=== PATIENT | female | born 1940 | race Caucasian/White ===

== ENCOUNTER 2016-04-24 07:08 | Observation (INO) ==
--- NOTE | 2016-04-24 07:37 | Emergency Department Note ---
Disposition Clinical Impression: Proctitis Abdominal pain Qualifiers: Abdominal location: unspecified location Qualified Code(s): R10.9 - Unspecified abdominal pain Constipation Qualifiers: Constipation type: unspecified constipation type Qualified Code(s): K59.00 - Constipation, unspecified Disposition: Admitted As Inpatient Condition: Good Time of Disposition: 10:58 Abdominal Pain HPI - General Chief Complaint: ED Abdominal Pain Stated Complaint: constipated, can't pee Time Seen by Provider: 04/24/16 07:13 Source: patient, family Mode of arrival: ambulatory Limitations: no limitations Nursing Notes Reviewed: Yes Vital Signs Reviewed: Yes - History of Present Illness HPI Narrative: Patient presents to emergency room with complaint of constipation and she has pain with voiding. She says that she has severe pain when she tries to have a bowel movement. Patient does have a history for melanoma with metastatic disease. She has taken several tablets worth of oral chemotherapy prior to this. Denies any other complaints this time. No fevers chills, nausea vomiting diarrhea, chest pain shortness of breath headache or vision change. Main complaint is pain with defecation and decreased urinary output. Pt Subjective Complaint: abdominal pain Onset (ago): day(s) Consistency: constant Location: LLQ Pain Severity: mild Pain Scale: 0 Quality: cramping, sharp (When she tries to have a bowel movement) Radiation: none Migration to: no migration Improves with: nothing Worsens with: bowel movement Associated symptoms: Reports: denies other symptoms Treatments prior to arrival: none - Related Data Home Medications Medication Instructions Recorded Confirmed Potassium Chloride [K-Tab ER] 10 meq PO DAILY 07/05/15 04/24/16 Triamterene/HCTZ 75/50mg [Maxzide] 1 tab PO DAILY 07/05/15 04/24/16 Ca/D3/Mag#11/Zinc/Acute Care Nurse/Tucker/Bor 1 tab PO DAILY 08/16/15 04/24/16 [Caltrate 600+D Plus Tablet] PredniSONE 10 mg PO DAILY 08/25/15 04/24/16 Previous Rx's Medication Instructions Recorded LORazepam [Ativan] 0.5 - 1 mg PO Q6HR PRN #90 tablet 06/23/15 Ondansetron HCl [Zofran] 4 mg PO Q4H PRN #30 tablet 08/04/15 Omeprazole [PriLOSEC] 20 mg PO DAILY #90 capsule. 04/12/16 Allergies Allergy/AdvReac Type Severity Reaction Status Date / Time No Known Allergies Allergy Verified 04/15/16 20:55 All systems ED: reviewed and negative except as stated. Constitutional: Denies: fever, chills Abdominal Pain PMH - Past Medical History Medical history: Reports: cancer, GERD, hypertension Female Surgical History: Reports: appendectomy, cholecystectomy, colectomy, hysterectomy Psychiatric history: Reports: anxiety - Social History Smoking status: Former smoker Alcohol use: Reports: none Drug use: Reports: none Physical Exam - General Limitations: no limitations General appearance: alert, in no apparent distress - Chest Chest inspection: Present: normal inspection, symmetric chest wall rise. Absent : tenderness - Respiratory Respiratory exam: Present: normal lung sounds bilaterally. Absent: respiratory distress, wheezes - Cardiovascular Cardiovascular exam: Present: normal rhythm, tachycardia, normal heart sounds - Abdominal Exam Abdominal exam: Present: soft, tenderness (Mild tenderness in the left lower quadrant suprapubically. No guarding no rigidity no peritoneal symptoms). Absent: Non-Tender, distention, guarding, rebound, rigidity, mass, pulsatile mass, hernia - Extremities Exam Extremities exam: Present: normal inspection, full ROM. Absent: tenderness - Back Exam Back exam: Present: normal inspection, full ROM. Absent: tenderness, CVA tenderness (R), CVA tenderness (L) - Neurological Exam Neurological exam: Present: alert, oriented X3, CN II-XII intact, normal gait - Psychiatric Psychiatric exam: Present: normal affect, normal mood - Skin Skin exam: Present: warm, dry, intact, normal color Course Course Narrative: Patient seen and examined the time of arrival. See history of present illness. This is a 75-year-old female who presents to emergency room with complaint of constipation and difficulty with voiding. Symptom onset was several days ago. She has a history of constipation but she has never had issues like this before. She says that every time she was at a bowel movement she has severe pain in her lower rectal area and she also describes some difficulty with feeling like she voids completely. Currently patient denies any other symptoms or complaints. She has no fevers chills nausea vomiting diarrhea denies chest pain shortness of breath headache or vision changes. According to the patient as well as the family member she is currently being evaluated for metastatic melanoma. She is only done a short course of oral chemotherapy and is under the care of the cancer center at this facility. Vital signs on presentation are stable she is afebrile. She is alert and oriented 3. Lungs are clear heart is regular abdomen is soft there is no guarding no rigidity she does have tenderness in the left lower quadrant radiating to the midline aspect of the abdomen. There is no palpable masses or deformity. She has no tenderness to the bilateral hips. Patient has full range of motion in upper and lower extremities and is ambulatory to the [facility]. Because of the patient's medical history and symptoms facial CT imaging of the abdomen labs include urinalysis ordered. Patient had evaluation one week ago for similar issue. Bedside rectal examination was completed by myself showing a firm stool mass in the vault that was loosened. She also be provided with fleets enema based on initial presentation. There is concern for intracolonic mass based on family history and discussion with the family member at the bedside. She is known to have masses in or: Lungs and liver based on the story from the family member at the bedside. We will continue to evaluate and discuss disposition. Currently patient is a full code based on recommendations and requests. - Reevaluation(s) Reevaluation #1: Labs are all within normal limits. Creatinine is better than what it normally is. Urinalysis is clean with no signs of infection. CT scan is still pending. No other acute pathology noted at this time. Fleets enema given. We will discuss disposition with the patient once the CT imaging is resulted Time: 09:05 Reevaluation #2: Patient I will patient informed that she has proctitis based on CT scan. She also has stool burden in the distal colon. Conversation was had with the on- call oncologist covering for . reviewed her medical history and symptoms. She was seen up at [facility] this time for her cancer treatments. I went in to discuss possible transfer further medical management with the patient and the family. They are requesting to stay here this is not a cancer related issue. I informed him that we do not have the ability to tell whether not this is cancer related except that she has inflammation of the distal colon as well as a large stool burden. There requesting to stay at this facility for evaluation and management. We will discuss this with the hospitalist education and outreach coordinator and determine disposition at that time. Pain medication ordered for the patient 's time as well as Cipro and Flagyl Discussed the patient with the hospitalist Dr. Montes. Will review the patient's presentation symptoms medical history and the wishes of the patient and the family. He is going to come down and evaluate the patient in the emergency room and discussed disposition. He was concerned based on her history and presentation with having appropriate medical management. We will continue to monitor and provide pain control here in the ED until this evaluation is completed. Time: 09:50 Reevaluation #3: hospitalist Dr. Montes at the bedside at this time. Patient will be admitted to their service at this time. No other recommendations from the hospitalist this point. Patient is stable and resting comfortably in the bed. Pain medication provided this point. Vital signs are stable she is afebrile and mentating appropriately. Incision the course of care will be done in the hospital. Patient will be observed here in the emergency room until the admission process is completed Time: 10:35 Vital Signs Temperature 97.9 F 04/24/16 07:09 Pulse Rate 116 04/24/16 07:09 Respiratory Rate 20 04/24/16 07:09 Blood Pressure 129/78 04/24/16 07:09 O2 Sat by Pulse Oximetry 96 04/24/16 07:09 Temperature 97.9 F 04/24/16 07:09 Pulse Rate 104 04/24/16 09:56 Respiratory Rate 18 04/24/16 09:56 Blood Pressure 140/78 04/24/16 09:56 O2 Sat by Pulse Oximetry 95 04/24/16 08:26 Oxygen Delivery Oxygen Delivery Room Air Abdominal Pain - MDM Narrative Medical decision making narrative: Constipation, abdominal pain cancer - Medical Records Medical records reviewed: Yes I reviewed the patient's medical records. - Lab Data Lab results reviewed: Yes I reviewed the patient's lab results. Result diagrams: 04/24/16 07:51 04/24/16 07:51 Lab Results 04/24/16 04/24/16 04/24/16 Range/Units 07:51 07:51 08:53 WBC 8.9 (4.3-11.1) K/mcL RBC 5.03 H (3.82-4.97) M/mcL Hgb 12.3 D (11.5-15.4) g/dL Hct 38.7 (35.3-44.9) % MCV 76.9 L (83.0-100.0) fL MCH 24.5 L (28.0-33.3) pg MCHC 31.8 (31.6-35.5) g/dL RDW 16.2 H (11.5-14.5) % Plt Count 286 (140-400) K/mcL MPV 8.1 L (9.4-12.4) fL Immature Gran % 0.8 (0-4) % Seg Neutrophils % 71.8 % Lymphocytes % 18.2 % Monocytes % 8.4 % Eosinophils % 0.3 % Basophils % 0.5 % Neutrophils # 6.4 (1.6-8.9) K/mcL Lymphocytes # 1.6 (0.6-4.6) K/mcL Monocytes # 0.8 (0.0-1.3) K/mcL Eosinophils # 0.0 (0.0-0.6) K/mcL Basophils # 0.0 (0.0-0.2) K/mcL Sodium 138 (136-145) mEq/L Potassium 3.3 L (3.5-4.5) mEq/L Chloride 100 (98-109) mEq/L Carbon Dioxide 24 (19-29) mEq/L BUN 22 H (7-20) mg/dL Creatinine 1.26 H (0.57-1.11) mg/dL Est GFR ( Amer) 50 L (> 60) Est GFR (Non-Af Amer) 42 L (> 60) BUN/Creatinine Ratio 17 (6-26) Glucose 106 H (70-99) mg/dL Calculated Osmolality 290 (280-300) Calcium 9.8 (8.6-10.8) mg/dL Total Bilirubin 0.8 (0.2-1.2) mg/dL Direct Bilirubin 0.3 (0.0-0.5) mg/dL Indirect Bilirubin 0.5 (0.0-1.2) mg/dL AST 13 (5-34) Units/L ALT 14 (0-55) Units/L Alkaline Phosphatase 63 (38-126) Units/L Serum Total Protein 6.8 (6.0-8.3) g/dL Albumin 3.0 L (3.5-5.0) g/dL Globulin 3.8 H (2.4-3.5) g/dL Albumin/Globulin Ratio 0.8 L (1.1-2.2) Lipase 159 H (8-78) Units/L Ur Specimen Adequacy See below A Urine Color Yellow (Yellow) Urine Clarity Cloudy A (Clear) Urine pH 6.5 (5.0-8.0) pH Units Ur Specific [place] 1.020 (1.010-1.025) Urine Protein 30 H (Neg-Trace) mg/dL Urine Glucose (UA) Normal (Normal) mg/dL Urine Ketones Negative (Negative) mg/dL Urine Blood Large H (Negative) Urine Nitrite Negative (Negative) Urine Bilirubin Negative (Negative) Urine Urobilinogen Normal (Normal) mg/dL Ur Leukocyte Esterase Large H (Negative) Urine Microscopic RBC 30-50 H (0-3) per hpf Urine Microscopic WBC 50-100 H (0-3) per hpf Ur Squamous Epith Cells Many H (None-Few) per lpf Ur Transition Epith Cell Few (None-Few) per hpf Urine Bacteria Many H (None-Few) per hpf Hyaline Casts Few (None-Few) per lpf Urine Yeast Test Not Performed Ur Culture Indicated? YES A (NO) - Radiology Data Radiology results reviewed: Yes I reviewed the patient's radiology results. Critical Care Time Critical Care Time: Yes Total Critical Care Time: 45 Attestation: Critical care is independent of procedures and medical management. The emergency room. Attestation Statement - Attestation Attestation: I examined this patient and my medical decision-making was reviewed with the SPIKE DRIVER/PA/Advanced Practice Nurse/Resident Physician. I agree with the documented findings, disposition and treatment plan as described except to the extent set forth below. Patient presents to the emergency department with a chief complaint of constipation. Patient states she has not had a bowel movement in 3-4 days. She has a history of bowel problems but has never been this bad. Patient currently being treated for metastatic melanoma. No recent chemoradiation. She has known metastases to her colon and history of diverticulitis. On exam she has tenderness over her left lower quadrant. Abdomen soft. Plan. Labs and CT. Patient with proctitis. Unclear if this is infectious versus inflammatory versus cancerous. She had a small resolved with enema. She is admitted to medicine.
[2016-04-24] MEDS ORDERED: SODIUM CHLORIDE/NAHCO3/KCL/PEG 4,000 ML SOLN.RECON PO ONE (07:43)
[2016-04-24 08:10] LABS: Basophils % 0.5 %; Eosinophils % 0.3 %; Hematocrit 38.7 % (35.3-44.9); Hemoglobin 12.3 g/dL (11.5-15.4); Immature Granulocytes % 0.8 % (0-4); Lymphocytes # 1.6 K/mcL (0.6-4.6); Lymphocytes % 18.2 %; Mean Corpuscular HGB Conc 31.8 g/dL (31.6-35.5); Mean Corpuscular Hemoglobin 24.5 pg (28.0-33.3); Mean Corpuscular Volume 76.9 fL (83.0-100.0); Mean Platelet Volume 8.1 fL (9.4-12.4); Monocytes # 0.8 K/mcL (0.0-1.3); Monocytes % 8.4 %; Neutrophils # 6.4 K/mcL (1.6-8.9); Platelet Count 286 K/mcL (140-400); Red Blood Count 5.03 M/mcL (3.82-4.97); Red Cell Distribution Width 16.2 % (11.5-14.5); Segmented Neutrophils % 71.8 %
[2016-04-24 08:12] LABS: Potassium 3.3 mEq/L (3.5-4.5)
[2016-04-24 08:13] LABS: Albumin/Globulin Ratio 0.8 (1.1-2.2); Bilirubin,Direct 0.3 mg/dL (0.0-0.5); Bilirubin,Indirect 0.5 mg/dL (0.0-1.2); Bilirubin,Total 0.8 mg/dL (0.2-1.2); Calcium 9.8 mg/dL (8.6-10.8); Globulin 3.8 g/dL (2.4-3.5); Total Protein 6.8 g/dL (6.0-8.3)
[2016-04-24 09:07] LABS: Bilirubin,Urine Negative (Negative); Blood,Urine Large (Negative); Clarity,Urine Cloudy (Clear); Color,Urine Yellow (Yellow); Glucose,Urine (UA) Normal (Normal); Ketones,Urine Negative (Negative); Leukocyte Esterase,Urine Large (Negative); Nitrite,Urine Negative (Negative); PH,Urine 6.5 pH Units (5.0-8.0); Protein,Urine 30 mg/dL (Neg-Trace); Urobilinogen,Urine Normal (Normal)
[2016-04-24 09:16] LABS: Bacteria,Urine Many per hpf (None-Few); Hyaline Casts,Urine Few per lpf (None-Few); Squamous Epithelial Cell,Urine Many per lpf (None-Few); WBC,Urine 50-100 per hpf (0-3)
[2016-04-24 09:26] LABS: RBC,Urine 30-50 per hpf (0-3); Transitional Epi Cells,Urine Few per hpf (None-Few)
[2016-04-24] MEDS ORDERED: MetroNIDAZOLE 500 MG/100 ML 500 MG/100 ML BAG IVPB ONE (09:35)
[2016-04-24] MEDS ORDERED: Ondansetron 4 MG/2 ML VIAL IV ONE (09:56)
[2016-04-24] MEDS ORDERED: *HR* Morphine 2 MG/ML SYRINGE IV ONE (09:56)
[2016-04-24] MEDS ORDERED: *HR* LORazepam 0.5 MG TABLET PO PRN (12:02)
[2016-04-24] MEDS ORDERED: Acetaminophen 325 MG TABLET PO PRN (12:07)
[2016-04-24] MEDS ORDERED: Ondansetron 4 MG/2 ML VIAL IVP PRN (12:07)
[2016-04-24] MEDS ORDERED: Naloxone 0.4 MG/ML INJ IVP PRN (12:07)
[2016-04-24] MEDS ORDERED: *HR* OxyCODONE Immed Rel 5 MG TABLET PO PRN (12:07)
[2016-04-24] MEDS ORDERED: *HR* FentaNYL (PF) 100 MCG/2 ML VIAL IV ONE (12:08)
[2016-04-24] MEDS ORDERED: 0.9 % Sodium Chloride 1,000 ML IVC SCH (12:15)
[2016-04-24] MEDS ORDERED: Bisacodyl 10 MG RECTAL SUPPOSITORY RC SCH (12:15)
--- NOTE | 2016-04-24 12:15 | Internal Med History&Physical ---
Date of Encounter: 04/24/16 Time of Encounter: 11:00 Assessment and Plan (1) Proctitis Current visit: Yes Status: Acute Likely secondary to chronic constipation and fecal impaction. We will continue with broad-spectrum antibiotics to cover gram-negative rods and anaerobes. (2) Cystitis Current visit: Yes Status: Acute Urinalysis is positive for leukocyte esterase and WBC. We will treat the patient with Levaquin. Follow-up urine culture. (3) Constipation Current visit: Yes Status: Acute Severe constipation likely secondary to delayed colonic transit. I have personally reviewed the CT scan and did not see any masses compressing the sigmoid or direct him although given her history of metastatic melanoma with colonic metastases there is always a possibility from metastatic disease. We will treat the patient with Fleet enema, Dulcolax suppository, MiraLAX. Consult surgery for possible need for colonoscopy to evaluate for metastatic disease. Qualifiers: Constipation type: slow transit constipation Qualified Code(s): K59.01 - Slow transit constipation (4) DVT prophylaxis Current visit: No Status: Acute We will start subcutaneous heparin. She is at high risk for PTE due to active cancer. (5) Hypokalemia Current visit: No Status: Acute Replete with oral potassium chloride. Check magnesium level. (6) Metastatic melanoma Current visit: No Status: Chronic We will consult oncology. Noted again it is a lung mass, she had a biopsy scheduled for today. This will be canceled. Internal Medicine - H&P: HPI Chief complaint: Rectal pain Admitted From: Emergency Dept Plans for Post Hospital Care: Home History of present illness: Ms. Severino is a 75 year old female with past medical history significant for hypertension and metastatic melanoma who presented to the hospital due to constipation and rectal pain. The patient reports moderate to severe rectal pain worse with straining and trying to pass a bowel movement and abdominal ambulation, improved by rest, associated with constipation. She states that she has not had a bowel movement for the last 4 days. Denies associated nausea vomiting fevers chills or abdominal pain. Denies dysuria hematuria urinary frequency and urgency. Reports easy bleeding and bruising, denies chest pain palpitations shortness of breath patient lost hearing loss weakness and numbness. The remainder of a 10 point review of systems was negative. Past medical history pertinent for pancreatic cancer and coronary artery disease in parents. Past Med Surg Social Fam HX - Past Medical History Medical history: cancer, GERD, hypertension Psychiatric history: anxiety - Past Surgical History Surgical History: appendectomy, cancer surgery, cholecystectomy, hysterectomy, other - Social History Smoking Status: Former smoker Smokeless Tobacco Status: No Alcohol use: none Drug use: none - Family History Mother Living Status: Hx Family Cancer: Yes (pancreatic/lung ca) Father Living Status: Internal Medicine - H&P: Meds LORazepam [Ativan] 0.5 - 1 mg PO Q6HR PRN #90 tablet 06/23/15 [Rx] Potassium Chloride [K-Tab ER] 10 meq PO DAILY 07/05/15 [History] Triamterene/HCTZ 75/50mg [Maxzide] 1 tab PO DAILY 07/05/15 [History] Ondansetron HCl [Zofran] 4 mg PO Q4H PRN #30 tablet 08/04/15 [Rx] Ca/D3/Mag#11/Zinc/Supervisor Files/Tucker/Bor [Caltrate 600+D Plus Tablet] 1 tab PO DAILY 08/15 [History] PredniSONE 10 mg PO DAILY 08/25/15 [History] Omeprazole [PriLOSEC] 20 mg PO DAILY #90 capsule. 04/12/16 [Rx] Allergies No Known Allergies Allergy (Verified 04/15/16 20:55) All Systems PM: A 10-system review of systems was performed and is negative for pertinent findings except as documented above in the HPI. - Constitutional Vitals: Temp Pulse Resp BP Pulse Ox 97.9 F 94 17 128/81 95 04/24/16 07:09 04/24/16 11:31 04/24/16 11:31 04/24/16 11:31 04/24/16 11:31 General appearance: Present: A&O X 3, no acute distress - Eye Eye exam: Present: PERRL, conjuntiva pink, sclera anicteric Pupils: Present: PERRL - Respiratory Respiratory exam: Present: CTAB. Absent: accessory muscle use, rales, rhonchi, wheezes - Cardiovascular Cardiovascular exam: Present: RRR, +S1, +S2. Absent: diastolic murmur, gallop, rubs, systolic murmur - GI/Abdominal GI/Abdominal exam: Present: normal bowel sounds, soft, no peritoneal signs. Absent: distended, tenderness - Extremities Exam Extremities exam: Present: warm, radial pulses palpable and symetrical. Absent : calf tenderness, cyanotic, pedal edema - Neurological Exam Neurological exam: Present: CN II-XII intact, oriented X3, no focal deficits. Absent: pronater drift, facial droop, speech deficit - Skin Skin exam: Present: dry, intact Internal Med - H&P Results - Labs CBC & Chem 7: 04/24/16 07:51 04/24/16 07:51
[2016-04-24] MEDS ORDERED: Polyethylene Glycol 3350 255 GM POWDER PO ONE (13:52)
[2016-04-24] MEDS: Sennosides/Docusate Sodium TABLET PO SCH (13:53)
--- NOTE | 2016-04-24 13:55 | General Surgery Consult Note ---
Date of Encounter: 04/24/16 Time of Encounter: 14:19 Assessment and Plan (1) Constipation Current Visit: Yes Status: Acute I personally reviewed the CT scan images from 04/24/2016 showing copious amounts of stool throughout the entire colon and concern for proctitis. I agree with with giving enemas and Miralax to help assist with bowel movements, however I will change the Miralax order so that she is given essentially half of a bowel prep to help assist with bowel movements. Once her bowel movements have improved and will talk with her about possibly performing an endoscopy procedure during her current inpatient stay. Discussed with the patient and her daughter and agreed to the above plan. Additionally, I changed her diet from a cardiac diet to full liquids. Qualifiers: Constipation type: slow transit constipation Qualified Code(s): K59.01 - Slow transit constipation History of Present Illness Consult date: 04/24/16 Reason for consult: other (Constipation) Requesting physician: Mayco Montes History of present illness: Patient is a 75-year-old female with a past medical history significant for hypertension, GERD, tuberculosis, and malignant melanoma with metastasis presents to [facility] with a history of constipation. She states that she has been dealing with problems of constipation for a while (1-2 years) but recently had problems with the last week or 2. He presented herself to [place] on 04/15/2016 with symptoms of constipation and had 2 bowel movements that were mainly blood. She states that she was treated in sent home but no endoscopy procedures were performed at that time. She states that she has not had a bowel movement for 4 days until this morning (bowel movement was small and only with an enema). She states that the bowel movement was hard but denies any abdominal pain.. She last had a colonoscopy in March 2015 and a flex sigmoidoscopy in June 2015. The colonoscopy demonstrated polypoid masses in the rectosigmoid/sigmoid region which were consistent with malignant melanoma. The patient also has hilar lymphadenopathy is also consistent with metastasis. Past Med Surg Social Fam HX - Past Medical History Medical history: cancer, GERD, hyperlipidemia Psychiatric history: anxiety - Past Surgical History Surgical History: appendectomy, cancer surgery, cholecystectomy, hysterectomy, other (Colonoscopy, flex sigmoidoscopy) - Social History Smoking Status: Former smoker Smokeless Tobacco Status: No Alcohol use: none Drug use: none - Family History Mother Living Status: Cause of : pancreatic cancer Hx Family Cardiac Disorders: No Hx Family Respiratory Disorders: No Hx Family Cancer: Yes (pancreatic) Hx Family GI Disorders: No Hx Family Genitourinary Disorders: No Hx Family Endocrine Disorder: No Hx Family Musculoskeletal Disorders: No Hx Family Neuromuscular Disorders: No Hx Family Neurologic Disorders: No Hx Family HEENT Disorders: No Hx Family Autoimmune Disorders: No Hx Family Reproductive Disorders: No Hx Family Psychosocial Disorders: No Hx Family Medical Disorders: No Father Living Status: Age at : 59 Cause of : blood clot in heart Hx Family Cardiac Disorders: No Hx Family Respiratory Disorders: No Hx Family Cancer: No Hx Family GI Disorders: No Hx Family Genitourinary Disorders: No Hx Family Endocrine Disorder: No Hx Family Musculoskeletal Disorders: No Hx Family Neuromuscular Disorders: No Hx Family Neurologic Disorders: No Hx Family HEENT Disorders: No Hx Family Autoimmune Disorders: No Hx Family Reproductive Disorders: No Hx Family Psychosocial Disorders: No Hx Family Medical Disorders: Yes (Blood clot in heart) Medications and Allergies LORazepam [Ativan] 0.5 - 1 mg PO Q6HR PRN #90 tablet 06/23/15 [Rx] Potassium Chloride [K-Tab ER] 10 meq PO DAILY 07/05/15 [History] Triamterene/HCTZ 75/50mg [Maxzide] 1 tab PO DAILY 07/05/15 [History] Ondansetron HCl [Zofran] 4 mg PO Q4H PRN #30 tablet 08/04/15 [Rx] Ca/D3/Mag#11/Zinc/Car Deliverer/Tucker/Bor [Caltrate 600+D Plus Tablet] 1 tab PO DAILY 08/15 [History] PredniSONE 10 mg PO DAILY 08/25/15 [History] Omeprazole [PriLOSEC] 20 mg PO DAILY #90 capsule. 04/12/16 [Rx] Allergies No Known Allergies Allergy (Verified 04/15/16 20:55) Review of Systems All systems PM: reviewed and no additional remarkable complaints except as stated All systems PM: A 10-system review of systems was performed and is negative for pertinent findings except as documented above in the HPI. General Surgery Exam Initial Vital Signs Temp Pulse Resp BP Pulse Ox 97.9 F 116 20 129/78 96 04/24/16 07:09 04/24/16 07:09 04/24/16 07:09 04/24/16 07:09 04/24/16 07:09 - General physical appearance well developed, well nourished, no distress - Eyes PERRL, normal ocular movement - Neck no masses, trachea midline, no lymphadectomy - Respiratory normal expansion, normal respiratory effort - Cardiovascular Cardiovascular exam: Present: RRR, no murmurs/rubs/gallops - Abdomen Abdomen general surgery: Present: bowel sounds present, soft, non tender - Neurologic Present: CN 2-12 grossly intact - Musculoskeletal Present: other (No clubbing, cyanosis, or edema) - Psychiatric Psychiatric general surgery: Present: A&Ox3, appropriate, oriented to person, oriented to place, oriented to time Exam Initial Vital Signs Temp Pulse Resp BP Pulse Ox 97.9 F 116 20 129/78 96 04/24/16 07:09 04/24/16 07:09 04/24/16 07:09 04/24/16 07:09 04/24/16 07:09 Results - Labs 04/24/16 07:51 04/24/16 07:51 Abnormal lab results RBC 5.03 M/mcL (3.82-4.97) H 04/24/16 07:51 MCV 76.9 fL (83.0-100.0) L 04/24/16 07:51 MCH 24.5 pg (28.0-33.3) L 04/24/16 07:51 RDW 16.2 % (11.5-14.5) H 04/24/16 07:51 MPV 8.1 fL (9.4-12.4) L 04/24/16 07:51 Potassium 3.3 mEq/L (3.5-4.5) L 04/24/16 07:51 BUN 22 mg/dL (7-20) H 04/24/16 07:51 Creatinine 1.26 mg/dL (0.57-1.11) H 04/24/16 07:51 Est GFR ( Amer) 50 (> 60) L 04/24/16 07:51 Est GFR (Non-Af Amer) 42 (> 60) L 04/24/16 07:51 Glucose 106 mg/dL (70-99) H 04/24/16 07:51 Albumin 3.0 g/dL (3.5-5.0) L 04/24/16 07:51 Globulin 3.8 g/dL (2.4-3.5) H 04/24/16 07:51 Albumin/Globulin Ratio 0.8 (1.1-2.2) L 04/24/16 07:51 Lipase 159 Units/L (8-78) H 04/24/16 07:51 Ur Specimen Adequacy See below A 04/24/16 08:53 Urine Clarity Cloudy (Clear) A 04/24/16 08:53 Urine Protein 30 mg/dL (Neg-Trace) H 04/24/16 08:53 Urine Blood Large (Negative) H 04/24/16 08:53 Ur Leukocyte Esterase Large (Negative) H 04/24/16 08:53 Urine Microscopic RBC 30-50 per hpf (0-3) H 04/24/16 08:53 Urine Microscopic WBC 50-100 per hpf (0-3) H 04/24/16 08:53 Ur Squamous Epith Cells Many per lpf (None-Few) H 04/24/16 08:53 Urine Bacteria Many per hpf (None-Few) H 04/24/16 08:53 Ur Culture Indicated? YES (NO) A 04/24/16 08:53 All other labs normal. - Imaging Abdominal x-ray: report reviewed, image reviewed (Evidence of stool throughout the entire colon. Question of proctitis. No free air or free fluid. Diverticulosis is noted. Right lower lobe lung mass as well as low-attenuation within the liver.) Consult Discharge Plan - Plan Referrals: Kareem Corbin MD [Primary Care Provider] -
[2016-04-24] MEDS: MetroNIDAZOLE 500 MG/100 ML 500 MG/100 ML BAG IVPB SCH (16:02)
--- NOTE | 2016-04-24 16:21 | Oncology Inp Consult Note ---
Date of Encounter: 04/24/16 Time of Encounter: 15:30 Assessment and Plan (1) Metastatic melanoma Status: Chronic Assessment and plan: Has progressed on Nivolumab and temozolamide, states she is not eligible for clinical trials due to single kidney. She will follow up with Dr Londono to discuss further plan of care. (2) Constipation Status: Acute Assessment and plan: With associated procititis. Agree with surgery evaluation and the need for endoscopy. The patient has intestinal involvement of the melanoma and a history of colitis with immunotherapy. Qualifiers: Constipation type: slow transit constipation Qualified Code(s): K59.01 - Slow transit constipation (3) Mass of right lung Status: Acute Assessment and plan: The patient was to have biopsy to rule out a second primary due to a history of renal cell carcinoma, it is currently on hold till the proctitis is treated. - Data of Consult Requesting Physician: Oralia Oglesby Primary Care Provider: Kareem Corbin MD - Consult Narrative Reason for consult: Malignant melanoma History of present illness: Ms. Severino is a 75 year old female with a history of metastatic melanoma for which she is being followed at [facility] by Dr. Londono. She was diagnosed with metastatic malignant melanoma in 2014 when she presented with hematochezia and a 20 pound weight loss. Colonoscopy showed multiple lesions in the bowel which were biopsied and were positive for S100, confirming the diagnosis of melanoma. Metastatic sites included right axillary lymphadenopathy , liver, right lung, a left temporal lobe mass as well as right parieto- occipital mass in the brain. She received Yervoy and Nivolumab for 3 cycles from April to June 2015, followed by Nivolumab for 4 cycles which was subsequently stopped due to progression of disease in the chest. She then received temozolomide from January to February 2016 and stopped it because of progression of disease. She has a single kidney due to a reported history of right nephrectomy for renal cell cancer in 1995. She was seen in our clinic on 04/19/16 and at that time reported hematochezia, malaise and dysphoria. The patient reports that she was recently seen at [facility] and was not eligible for any clinical trials. She has an appointment coming up this Sunday with Dr. Londono and she wants to discuss with him about her other treatment options. The patient is admitted today with a complaint of constipation. She was found to have fecal impaction and received enemas which provided partial relief of the constipation. CT A/P was concerning for proctitis. She is currently being prepped for a possible colonoscopy during this inpatient hospital stay. She denied any blood in her stool. Continues to feel fatigued. ECOG PS is 3. She was to have a biopsy of the lung lesion which was cancelled due to ongoing infection. Past Med Surg Social Fam HX - Past Medical History Medical history: cancer, GERD, hyperlipidemia Psychiatric history: anxiety - Past Surgical History Surgical History: appendectomy, cancer surgery, cholecystectomy, hysterectomy, other (Colonoscopy, flex sigmoidoscopy) - Social History Smoking Status: Former smoker Smokeless Tobacco Status: No Alcohol use: none Drug use: none - Family History Mother Living Status: Cause of : pancreatic cancer Hx Family Cardiac Disorders: No Hx Family Respiratory Disorders: No Hx Family Cancer: Yes (pancreatic) Hx Family GI Disorders: No Hx Family Genitourinary Disorders: No Hx Family Endocrine Disorder: No Hx Family Musculoskeletal Disorders: No Hx Family Neuromuscular Disorders: No Hx Family Neurologic Disorders: No Hx Family HEENT Disorders: No Hx Family Autoimmune Disorders: No Hx Family Reproductive Disorders: No Hx Family Psychosocial Disorders: No Hx Family Medical Disorders: No Father Living Status: Age at : 59 Cause of : blood clot in heart Hx Family Cardiac Disorders: No Hx Family Respiratory Disorders: No Hx Family Cancer: No Hx Family GI Disorders: No Hx Family Genitourinary Disorders: No Hx Family Endocrine Disorder: No Hx Family Musculoskeletal Disorders: No Hx Family Neuromuscular Disorders: No Hx Family Neurologic Disorders: No Hx Family HEENT Disorders: No Hx Family Autoimmune Disorders: No Hx Family Reproductive Disorders: No Hx Family Psychosocial Disorders: No Hx Family Medical Disorders: Yes (Blood clot in heart) Medications and Allergies LORazepam [Ativan] 0.5 - 1 mg PO Q6HR PRN #90 tablet 06/23/15 [Rx] Potassium Chloride [K-Tab ER] 10 meq PO DAILY 07/05/15 [History] Triamterene/HCTZ 75/50mg [Maxzide] 1 tab PO DAILY 07/05/15 [History] Ondansetron HCl [Zofran] 4 mg PO Q4H PRN #30 tablet 08/04/15 [Rx] Ca/D3/Mag#11/Zinc/Perfect Binder Feeder Offbearer/Tucker/Bor [Caltrate 600+D Plus Tablet] 1 tab PO DAILY 08/15 [History] PredniSONE 10 mg PO DAILY 08/25/15 [History] Omeprazole [PriLOSEC] 20 mg PO DAILY #90 capsule. 04/12/16 [Rx] Allergies No Known Allergies Allergy (Verified 04/15/16 20:55) Constitutional: Present: anorexia, fatigue, lethargy, malaise, weakness, weight loss Eyes: Present: blurry vision Cardiovascular: Present: diaphoresis, dyspnea, leg edema Respiratory: Present: cough, dyspnea Gastrointestinal: Present: constipation, hematochezia, nausea Neurological: Present: memory loss Oncology - Exam - Constitutional Vitals: Temp Pulse Resp BP Pulse Ox 97.9 F 104 18 121/73 91 L 04/24/16 15:33 04/24/16 15:33 04/24/16 15:33 04/24/16 15:33 04/24/16 15:33 General appearance: average body habitus, mild distress - Head Head exam: Present: atraumatic, normocephalic - Eye Eye exam: Present: EOMI, normal appearance, PERRL - ENT ENT exam: Present: mucous membranes dry, normal oropharynx - Neck Neck exam: Present: full ROM - Respiratory Respiratory exam: Present: CTAB - Cardiovascular Cardiovascular exam: Present: RRR, +S1, +S2 - GI/Abdominal GI/Abdominal exam: Present: normal bowel sounds, soft, tenderness - Extremities Exam Extremities exam: Present: full ROM, normal inspection Consult Discharge Plan - Plan Referrals: Kareem Corbin MD [Primary Care Provider] -
[2016-04-24] MEDS ORDERED: Levofloxacin 750 MG/150 ML 750 MG/150 ML BAG IVPB SCH (17:00)
[2016-04-25] MEDS: MetroNIDAZOLE 500 MG/100 ML 500 MG/100 ML BAG IVPB SCH ×4 (03:22→23:30)
[2016-04-25] MEDS: Sennosides/Docusate Sodium TABLET PO SCH (09:43)
[2016-04-25] MEDS: Pantoprazole 40 MG VIAL IVP SCH (09:43)
[2016-04-25] MEDS: predniSONE 10 MG TABLET PO SCH (09:43)
[2016-04-25] MEDS ORDERED: Magnesium Sulfate 2 GM in D5% in Water 100 ML IVPB ONE (14:22)
[2016-04-25] MEDS ORDERED: Potassium Chloride Elixir 20 MEQ/15 ML UDC PO ONE (14:22)
--- NOTE | 2016-04-25 14:31 | Internal Med Progress Note ---
Date of Encounter: 04/25/16 Time of Encounter: 14:29 - Assessment and plan (1) Proctitis Current Visit: Yes Status: Acute Assessment and plan: CT abdomen/pelvis shows evidence of constipation and stool impaction with perirectal fat stranding suggestive of proctitis. Continue IV Levaquin and Flagyl at this time. Surgery follow-up appreciated, plan for colonoscopy in a.m. to evaluate for obstructive lesions in light of history of metastatic melanoma with colonic lesions in the past. Improving abdominal pain. Noted to have bowel movements with MiraLAX, continue bowel prep in anticipation of colonoscopy. Nothing by mouth past midnight. Supportive care. (2) Hypomagnesemia Current Visit: Yes Status: Acute Assessment and plan: Supplement with IV magnesium sulfate and recheck serum magnesium in a.m. (3) Hypokalemia Current Visit: Yes Status: Acute Assessment and plan: Supplement with oral potassium chloride and recheck serum potassium in a.m. (4) Melanoma Current Visit: Yes Status: Inactive Assessment and plan: History of malignant melanoma with metastatic lesions to colon. Patient is also noted to have right lower lung mass, to be evaluated as outpatient. Oncology consult appreciated, recommend Outpatient oncology follow-up. Qualifiers: Melanoma location: unspecified site Qualified Code(s): C43.9 - Malignant melanoma of skin, unspecified (5) Constipation Current Visit: Yes Status: Chronic Qualifiers: Constipation type: slow transit constipation Qualified Code(s): K59.01 - Slow transit constipation - Subjective Interval history: Reports feeling better; no abdominal pain, nausea, vomiting; reports having about 5-6 bowel movements today, loose but not clear yet, nonbloody; - Constitutional Vitals: Temp Pulse Resp BP Pulse Ox 98.9 F 89 16 132/87 94 L 04/25/16 12:20 04/25/16 12:20 04/25/16 12:20 04/25/16 12:20 04/25/16 12:20 General appearance: Present: A&O X 3, answers questions appropriately - Head Head exam: Present: atraumatic, normocephalic - Neck Neck exam general surgery: Present: supple, trachea midline. Absent: lymphadenopathy - Respiratory Respiratory exam: Present: CTAB (anterolaterally). Absent: accessory muscle use , rales, rhonchi, wheezes - Cardiovascular Cardiovascular exam: Present: RRR, +S1, +S2. Absent: diastolic murmur, gallop, rubs, systolic murmur - GI/Abdominal GI/Abdominal exam: Present: diminished bowel sounds, soft, no peritoneal signs. Absent: distended, tenderness - Extremities Exam Extremities exam: Present: warm, radial pulses palpable and symetrical. Absent : calf tenderness, cyanotic, pedal edema - Neurological Exam Neurological exam: Present: CN II-XII intact, oriented X3, no focal deficits. Absent: pronater drift, facial droop, speech deficit - Skin Skin exam: Present: dry, intact Internal Medicine: Result - Labs CBC & Chem 7: 04/24/16 07:51 04/24/16 07:51 Consult Discharge Plan - Plan Referrals: Shaquille,Kareem Pitt MD [Primary Care Provider] -
--- NOTE | 2016-04-25 15:17 | General Surgery Progress Note ---
<Ethan Thurman - Last Filed: 04/25/16 17:02> - Assessment and Plan (1) Constipation Current Visit: Yes Status: Acute Qualifiers: Constipation type: slow transit constipation Qualified Code(s): K59.01 - Slow transit constipation Objective Vital Signs - Last 8 Hours Temp Pulse Resp BP Pulse Ox 04/25/16 15:26 97.9 F 93 15 136/83 94 L 04/25/16 12:20 98.9 F 89 16 132/87 94 L 04/25/16 10:08 95 Intake and Output 04/25/16 04/25/16 04/25/16 07:59 15:59 23:59 Intake Total 1100 / 1100 220 / 220 Balance 1100 / 1100 220 / 220 Intake: IV Fluids 1100 / 1100 100 / 100 0.9 % Sodium Chloride 1, 1000 / 1000 000 ML @ 80 mls/hr IVC . [id number] JANIE Rx#: [id number] Flagyl 500 MG/100 ML 500 100 / 100 100 / 100 mg In 100 ml @ 100 mls/hr IVPB Q8HR JANIE Rx#: [id number] Oral 120 / 120 Other: Meal Lunch Percent of Meal Consumed 0% Stool Size Small Small Stool Consistency loose liquid Stool Color Brown # Bowel Movements 3 1 Weight 70 kg Patient Weight 04/25/16 23:59 Weight 70 kg - Labs 04/24/16 07:51 04/24/16 07:51 Consult Discharge Plan - Plan Referrals: Kareem Corbin MD [Primary Care Provider] - - Attending Attestation I examined this patient and my medical decision-making was reviewed with the DROP WIRE ALIGNER/PA/Advanced Practice Nurse/Resident Physician. I agree with the documented findings, disposition and treatment plan as described except to the extent set forth below. Patient with positive bowel movements with no identifiable rectal bleeding. No abdominal pain on exam. Patient states the stool is still brown in color. Will tentatively schedule for a colonoscopy for tomorrow pending clearance of her colon. Discussed with the patient and family agreed to the above plan. <Jeancarlos Godfrey - Last Filed: 04/26/16 08:53> Date of Encounter: 04/25/16 Time of Encounter: 15:00 - Assessment and Plan (1) Constipation Current Visit: Yes Status: Chronic Plan for colonscopy tomorrow. Clear liquids, NPO at midnight. Having bowel movements, continue Miralax bowel prep Qualifiers: Constipation type: slow transit constipation Qualified Code(s): K59.01 - Slow transit constipation Subjective Patient reports: no new complaints, feels better, pain is less, flatus, bowel movement (6+ BM), nausea (with bowel prep), afebrile Objective Vital Signs - Last 8 Hours Temp Pulse Resp BP Pulse Ox 04/25/16 12:20 98.9 F 89 16 132/87 94 L 04/25/16 10:08 95 04/25/16 07:49 98.7 F 81 15 131/79 95 Intake and Output 04/24/16 04/25/16 04/25/16 23:59 07:59 15:59 Intake Total 440 / 440 1100 / 1100 220 / 220 Balance 440 / 440 1100 / 1100 220 / 220 Intake: IV Fluids 200 / 200 1100 / 1100 100 / 100 0.9 % Sodium Chloride 1, 1000 / 1000 000 ML @ 80 mls/hr IVC . [id number] JANIE Rx#: [id number] Levaquin 750mg/150 mL 750 100 / 100 mg In 150 ml @ 100 mls/ hr IVPB Q48H JANIE Rx#: [id number] Flagyl 500 MG/100 ML 500 100 / 100 100 / 100 100 / 100 mg In 100 ml @ 100 mls/hr IVPB Q8HR JANIE Rx#: [id number] Oral 240 / 240 120 / 120 Other: Meal Dinner Lunch Percent of Meal Consumed 100% 0% Stool Size Small Small Small Stool Consistency soft loose liquid formed Stool Color Brown Brown # Voids 1 # Bowel Movements 1 3 1 Weight 70 kg Patient Weight 04/25/16 23:59 Weight 70 kg - General physical appearance well developed, well nourished, no distress - Eyes normal ocular movement - ENT normal mucosa, atraumatic, normocephalic - Neck Neck exam: trachea midline - Respiratory normal respiratory effort, clear to auscultation - Cardiovascular Cardiovascular exam: Present: RRR, no murmurs/rubs/gallops - Abdomen Abdomen: Present: bowel sounds present, soft, non tender - Integumentary no rash - Neurologic CN 2-12 grossly intact - Psychiatric oriented to time, oriented to person, oriented to place, speech is normal, memory intact - Labs 04/26/16 04:29 04/26/16 04:29
--- NOTE | 2016-04-25 21:00 | Electrocardiograph Report ---
[facility] Test Date: 2016-04-24 Pat Name: GURPREET PATEL Department: 103 Room: 3B33 Gender: F [employer]: : 1940 Requested By: Order Number: [id number] Reading MD: Jenni Garcia Measurements Intervals Sun Rate: 94 P: 34 [place]: 163 QRS: -59 QRSD: 91 T: 43 QT: 347 QTc: 398 Interpretive Statements SINUS RHYTHM LOW QRS VOLTAGE IN PRECORDIAL LEADS LEFT ANTERIOR FASCICULAR BLOCK Electronically Signed On 04-25-2016 20:58:43 EST by Jenni Garcia
[2016-04-26 05:57] LABS: Basophils % 0.3 %; Eosinophils % 0.5 %; Immature Granulocytes % 0.8 % (0-4); Lymphocytes # 1.1 K/mcL (0.6-4.6); Lymphocytes % 18.6 %; Mean Corpuscular HGB Conc 30.3 g/dL (31.6-35.5); Mean Corpuscular Hemoglobin 24.1 pg (28.0-33.3); Mean Corpuscular Volume 79.7 fL (83.0-100.0); Mean Platelet Volume 8.3 fL (9.4-12.4); Monocytes # 0.7 K/mcL (0.0-1.3); Monocytes % 11.4 %; Neutrophils # 4.1 K/mcL (1.6-8.9); Platelet Count 274 K/mcL (140-400); Red Blood Count 4.39 M/mcL (3.82-4.97); Red Cell Distribution Width 16.2 % (11.5-14.5); Segmented Neutrophils % 68.4 %
[2016-04-26 06:07] LABS: Hemoglobin 10.6 g/dL (11.5-15.4)
[2016-04-26 06:08] LABS: Calcium 8.9 mg/dL (8.6-10.8); Potassium 3.7 mEq/L (3.5-4.5)
[2016-04-26] MEDS: MetroNIDAZOLE 500 MG/100 ML 500 MG/100 ML BAG IVPB SCH (08:33)
[2016-04-26] MEDS: Pantoprazole 40 MG VIAL IVP SCH (08:33)
[2016-04-26] MEDS: Sennosides/Docusate Sodium TABLET PO SCH (08:34)
[2016-04-26] MEDS: predniSONE 10 MG TABLET PO SCH (08:34)
[2016-04-26] MEDS ORDERED: *HR* Midazolam HCl 5 MG/5 ML VIAL IVP ONE (12:19)
[2016-04-26] MEDS ORDERED: *HR* FentaNYL (PF) 100 MCG/2 ML VIAL ONE (12:20)
[2016-04-26] MEDS ORDERED: *HR* Promethazine 25 MG/ML VIAL IVP ONE (12:21)
[2016-04-26] MEDS ORDERED: Simethicone 40 MG/0.6 ML MLS IR ONE (12:21)
--- NOTE | 2016-04-26 12:22 | Pre-Sedation Evaluation ---
Pre-sedation evaluation - Pre-sedation checklist Date of procedure: 04/26/16 Procedure: Colonoscopy Recent Vitals: Last Vital Signs Temp 97.8 F 04/26/16 11:35 Pulse 84 04/26/16 11:35 Resp 16 04/26/16 11:35 BP 135/80 04/26/16 11:35 Pulse Ox 96 04/26/16 11:35 H&P (including ROS) documented in medical record: Yes Previous reaction to sedatives/anesthetics: No Dietary Status: NPO after Midnight Airway Assessment: Patient can open mouth completely, TMJ function normal Dentition: No loose teeth or bridges Possible difficult airway: No ASA Classification *see protocol: CLASS III-Severe systemic disease Plan of Care: Pt appropriate candidate for procedure/moderate/conscious sedation
[2016-04-26] MEDS: *HR* FentaNYL (PF) 100 MCG/2 ML VIAL IVP PRN ×2 (12:26→12:28)
[2016-04-26] MEDS: *HR* Midazolam HCl 5 MG/5 ML VIAL IVP PRN ×2 (12:28→12:29)
[2016-04-26] MEDS ORDERED: 0.9 % Sodium Chloride 1,000 ML IVC SCH (12:30)
--- NOTE | 2016-04-26 12:47 | Event Note ---
Date of Encounter: 04/26/16 Time of Encounter: 12:45 Colonoscopy completed. Noted a small polyp in the rectum and ascending colon which were removed with foreceps. A large, pedunculated polyp was discovered in the recto-sigmoid area that was completely removed and likely related to her rectal bleeding. Biopsy results pending. Will advance diet. Thank you.
[2016-04-26 13:43] VITALS: BP 111/78
--- NOTE | 2016-04-26 14:47 | Discharge Summary ---
Date of Encounter: 04/26/16 Time of Encounter: 14:42 - Discharge Diagnosis (1) Proctitis Priority: Primary Status: Acute (2) Hypomagnesemia Priority: Primary Status: Resolved (3) Hypokalemia Priority: Primary Status: Resolved (4) Melanoma Priority: Secondary Status: Inactive Qualifiers: Melanoma location: unspecified site Qualified Code(s): C43.9 - Malignant melanoma of skin, unspecified (5) Constipation Priority: Primary Status: Chronic Qualifiers: Constipation type: slow transit constipation Qualified Code(s): K59.01 - Slow transit constipation - Discharge Medications Prescriptions: Ciprofloxacin HCl [Cipro] 250 mg PO BID #14 tab MetroNIDAZOLE [Flagyl] 500 mg PO TID #21 tablet Sennosides/Docusate Sodium [Senna Plus] 2 each PO DAILY #60 tablet Home Medications: LORazepam [Ativan] 0.5 - 1 mg PO Q6HR PRN #90 tablet 06/23/15 [Rx] Potassium Chloride [K-Tab ER] 10 meq PO DAILY 07/05/15 [History] Triamterene/HCTZ 75/50mg [Maxzide] 1 tab PO DAILY 07/05/15 [History] Ondansetron HCl [Zofran] 4 mg PO Q4H PRN #30 tablet 08/04/15 [Rx] Ca/D3/Mag#11/Zinc/Broiler Manager/Tucker/Bor [Caltrate 600+D Plus Tablet] 1 tab PO DAILY 08/15 [History] PredniSONE 10 mg PO DAILY 08/25/15 [History] Omeprazole [PriLOSEC] 20 mg PO DAILY #90 capsule. 04/12/16 [Rx] Ciprofloxacin HCl [Cipro] 250 mg PO BID #14 tab 04/26/16 [Rx] MetroNIDAZOLE [Flagyl] 500 mg PO TID #21 tablet 04/26/16 [Rx] Sennosides/Docusate Sodium [Senna Plus] 2 each PO DAILY #60 tablet 04/26/16 [Rx] Allergies/Adverse Reactions: Allergies No Known Allergies Allergy (Verified 04/15/16 20:55) Procedures/tests Complete & Pending: Procedures Performed prior 72 hours Category Date Time Status EKG [ECG 12 lead ECG] [ECG] Stat Y 04/24/16 11:30 Completed Date of admission: 04/24/16 11:00 Primary care physician: Kareem Corbin MD Consults: 04/24/16 12:10 Consult to Physician [CONS] Routine Consulting Provider: Cam Parra Reason for Consult: constipation, colon metastatic disease Time Notified: 12:11 Call Completed: Yes 04/24/16 13:32 Consult to Executive Coordinator [CONS] Routine Reason for SW Consult: may need home health sevices on d/c, 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 Discharging clinician: Oumou Devi Anticipated date of discharge: 04/26/16 - Patient Status Disposition: Home, Self-Care Condition: Good Functional capacity at discharge: independent ambulation Overall status at discharge: patient is back to baseline - Discharge Instructions Instructions: Ciprofloxacin (By mouth), Laxative, Stimulant (By mouth), Metronidazole (By mouth), Colonoscopy (DC), Dehydration (DC), Acute Nausea and Vomiting (DC) Follow Up With: Kareem Corbin MD [Primary Care Provider] - - Diet and Activity Activity: resume usual activities as tolerated Diet: low fat, low cholesterol, low salt diet (high fiber diet) Hospital course: Ms. Severino is a 75 year old female with a few medical problems, admitted with abdominal pain and constipation. CT abdomen/pelvis done in the emergency room showed changes suggestive of proctitis probably from fecal impaction and severe constipation. She was started on stool softeners and laxatives along with poor prep with MiraLAX and noted to have good bowel movements. She was also started on IV Levaquin and Flagyl and was kept nothing by mouth. Surgery was consulted for possible colonoscopy as patient is noted to have history of metastatic malignant melanoma with lesions in her colon. She underwent colonoscopy and was noted to have polyps in the rectum and ascending colon which were removed along with a large, pedunculated polyp in the rectosigmoid area that could be causing obstruction and rectal bleeding. Biopsy results are pending. Patient is currently medically stable for discharge with outpatient follow-up for biopsy results. She is able to tolerate oral diet and has no other complaints at this time. - Time Spent with Patient Total time spent providing and/or coordinating discharge services: Greater than 30 minutes (45 min) - Constitutional Vitals: Temp Pulse Resp BP Pulse Ox 97.6 F 98 16 111/78 93 L 04/26/16 13:42 04/26/16 13:42 04/26/16 13:42 04/26/16 13:42 04/26/16 13:42 General appearance: Present: A&O X 3, answers questions appropriately - Respiratory Respiratory exam: Present: CTAB. Absent: accessory muscle use, rales, rhonchi, wheezes - Cardiovascular Cardiovascular exam: Present: RRR, +S1, +S2. Absent: diastolic murmur, gallop, rubs, systolic murmur - GI/Abdominal GI/Abdominal exam: Present: normal bowel sounds, soft, no peritoneal signs. Absent: distended, tenderness
== END 2016-04-26 16:45 | disposition home or self-care (01) ==
LOC: EMEROO 07:08 → 3BNU 07:08 → SUATTDRO 11:00 → 3BNU 13:00
PROVIDERS: ADMIT Internal Medicine; ATTEND Internal Medicine
PROC: ENDOCBX (2016-04-26 16:10)

== ENCOUNTER 2016-06-04 11:58 | Observation (INO) ==
[2016-06-04] MEDS ORDERED: 0.9 % Sodium Chloride 1,000 ML IVC ONE (12:15)
--- NOTE | 2016-06-04 12:18 | Emergency Department Note ---
Disposition Clinical Impression: Hemoptysis, Lung mass Anemia Qualifiers: Anemia type: unspecified type Qualified Code(s): D64.9 - Anemia, unspecified Leukopenia Qualifiers: Leukopenia type: unspecified Qualified Code(s): D72.819 - Decreased white blood cell count, unspecified Disposition: Admitted As Inpatient Condition: Fair Time of Disposition: 15:26 SOB HPI - General Chief Complaint: ED General Medical Stated Complaint: coughing up blood Time Seen by Provider: 06/04/16 12:08 Source: patient Limitations: no limitations Nursing Notes Reviewed: Yes Vital Signs Reviewed: Yes - History of Present Illness 75-year-old femalehx of stage IV melanoma, 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 Last chemotherapy on May [address] Londono, percent hemoptysis. Patient has had some hemoptysis for the last few weeks, but her hemoglobins have been stable. She was started on cisplatin previously. She denies any chest pain. States some shortness breath increased work of breathing and cough, progressively worse the last few days. Pt Subjective Complaint: shortness of breath Onset (ago): day(s) Context: recent illness Severity: moderate Consistency/Duration: intermittent Known history of: other (Metastatic Melanoma to Lungs) Treatment prior to arrival: none Cough present: Yes Sputum production: Yes Sputum Amount: None - Related Data Home Medications Medication Instructions Recorded Confirmed Ca/D3/Mag#11/Zinc/Mothers Helper/Tucker/Bor 1 tab PO DAILY 08/16/15 06/04/16 [Caltrate 600+D Plus Tablet] PredniSONE 10 mg PO DAILY 08/25/15 06/04/16 Oxycodone HCl/Acetaminophen 1 tab PO Q4H PRN 06/04/16 06/04/16 [Percocet 5-325 mg Tablet] Potassium Chloride [K-Tab ER] 20 meq PO DAILY 06/04/16 06/04/16 Sennosides/Docusate Sodium [Senna 2 tab PO DAILY PRN 06/04/16 06/04/16 Plus] Previous Rx's Medication Instructions Recorded LORazepam [Ativan] 0.5 - 1 mg PO Q6HR PRN #90 tablet 06/23/15 Omeprazole [PriLOSEC] 20 mg PO DAILY #90 capsule. 04/12/16 Magic Mouthwash 10 ml PO TID PRN #260 ml 05/22/16 Ondansetron [Zofran] 8 mg PO Q8HR PRN #90 tablet 05/22/16 Prochlorperazine Maleate 10 mg PO Q6HR PRN #60 tablet 05/22/16 [Compazine] Methylphenidate HCl [Ritalin] 5 mg PO QAM #30 tablet 05/30/16 Metoprolol [Lopressor] 12.5 mg PO BID #60 tablet 05/30/16 Allergies Allergy/AdvReac Type Severity Reaction Status Date / Time No Known Allergies Allergy Verified 04/15/16 20:55 All systems ED: reviewed and negative except as stated. Constitutional: Denies: fever, chills ENT ED: Denies: ear pain, throat pain Cardiovascular: Reports: as per HPI. Denies: palpitations Respiratory: Reports: as per HPI, cough, hemoptysis. Denies: sputum production Gastrointestinal: Denies: abdominal pain, nausea, vomiting Past Medical History - Past Medical History Attestation: Yes The following information was validated with the patient. Source: patient Medical history: Reports: cancer, GERD, hyperlipidemia Surgical history: Reports: appendectomy, cancer surgery, cholecystectomy, hysterectomy, other Psychiatric history: Reports: anxiety - Social History Smoking Status: Former smoker Smokeless Tobacco Status: No Alcohol use: Reports: none Drug use: Reports: none Physical Exam Constitutional: alert and oriented, in NAD, vital signs reviewed and wnl HEENT: NCAT, sclera anicteric, PERRLA bilaterally, normal external ears bilaterally, nasal septum nondeviated, average dentition, MMM Neck: normal inspection, neck is supple, trachea midline Resp: Coarse wheezes to the right lung base, diffusely CV: RRR, no m/g/r GI: normal inspection, Soft, NTND, BS present Back: normal inspection, no tenderness to palpation Neuro: A&O3, no gross motor or sensory deficits bilaterally MSK: normal inspection, bilateral UE and LE with normal ROM Psych: normal mood, normal affect Skin: No rashes, skin warm, dry, intact - General Limitations: no limitations General appearance: alert, in no apparent distress Course Course Narrative: Referral female with hemoptysis, stage IV melanoma, suspects abscesses secondary to her mass in the right lung, however could be due to other allergies , we did basic lab work BMP CBC troponin chest x-ray recess. - Reevaluation(s) Reevaluation #1: Admitted to the hospitalist Dr. Montes further workup and potential bronchoscopy. Time: 15:18 - Consultations Consultation #1: Keith states patient would then if it from admission with bronchoscopy. We will call hospitalist. Patient currently hematologically stable. Vital Signs Temperature 97.9 F 06/04/16 12:00 Pulse Rate 96 06/04/16 12:00 Respiratory Rate 22 06/04/16 12:00 Blood Pressure 137/73 06/04/16 12:00 O2 Sat by Pulse Oximetry 95 06/04/16 12:00 Temperature 97.9 F 06/04/16 12:00 Pulse Rate 92 06/04/16 14:51 Respiratory Rate 18 06/04/16 15:16 Blood Pressure 124/92 06/04/16 15:16 O2 Sat by Pulse Oximetry 100 06/04/16 15:02 Oxygen Delivery Oxygen Delivery Room Air Shortness of Breath/Dyspnea - Differential Diagnosis Likely: pulmonary embolism - Medical Records Medical records reviewed: Yes I reviewed the patient's medical records. - Lab Data Lab results reviewed: Yes I reviewed the patient's lab results. Result diagrams: 06/04/16 13:02 06/04/16 13:02 Lab Results 06/04/16 06/04/16 06/04/16 Range/Units 13:02 13:02 13:02 WBC 2.1 L D (4.3-11.1) K/mcL RBC 3.87 (3.82-4.97) M/mcL Hgb 9.5 L D (11.5-15.4) g/dL Hct 31.1 L (35.3-44.9) % MCV 80.4 L (83.0-100.0) fL MCH 24.5 L (28.0-33.3) pg MCHC 30.5 L (31.6-35.5) g/dL RDW 16.9 H (11.5-14.5) % Plt Count 199 (140-400) K/mcL MPV 8.5 L (9.4-12.4) fL Immature Gran % 0.5 (0-4) % Seg Neutrophils % 65.6 % Lymphocytes % 15.6 % Monocytes % 16.5 % Eosinophils % 0.9 % Basophils % 0.9 % Neutrophils # 1.4 L (1.6-8.9) K/mcL Lymphocytes # 0.3 L (0.6-4.6) K/mcL Monocytes # 0.4 (0.0-1.3) K/mcL Eosinophils # 0.0 (0.0-0.6) K/mcL Basophils # 0.0 (0.0-0.2) K/mcL PT (9.4-12.1) Seconds INR APTT (26.0-36.0) Seconds Sodium 136 (136-145) mEq/L Potassium 4.3 (3.5-4.5) mEq/L Chloride 107 (98-109) mEq/L Carbon Dioxide 22 (19-29) mEq/L BUN 20 (7-20) mg/dL Creatinine 0.91 (0.57-1.11) mg/dL Est GFR ( Amer) > 60 (> 60) Est GFR (Non-Af Amer) > 60 (> 60) BUN/Creatinine Ratio 22 (6-26) Glucose 100 H (70-99) mg/dL Calculated Osmolality 285 (280-300) Calcium 8.9 (8.6-10.8) mg/dL Troponin I 0.00 (0-0.03) ng/mL B-Natriuretic Peptide (0-100) pg/mL Blood Type Antibody Screen 06/04/16 06/04/16 06/04/16 Range/Units 13:02 13:02 13:02 WBC (4.3-11.1) K/mcL RBC (3.82-4.97) M/mcL Hgb (11.5-15.4) g/dL Hct (35.3-44.9) % MCV (83.0-100.0) fL MCH (28.0-33.3) pg MCHC (31.6-35.5) g/dL RDW (11.5-14.5) % Plt Count (140-400) K/mcL MPV (9.4-12.4) fL Immature Gran % (0-4) % Seg Neutrophils % % Lymphocytes % % Monocytes % % Eosinophils % % Basophils % % Neutrophils # (1.6-8.9) K/mcL Lymphocytes # (0.6-4.6) K/mcL Monocytes # (0.0-1.3) K/mcL Eosinophils # (0.0-0.6) K/mcL Basophils # (0.0-0.2) K/mcL PT 11.9 (9.4-12.1) Seconds INR 1.1 APTT 32.9 (26.0-36.0) Seconds Sodium (136-145) mEq/L Potassium (3.5-4.5) mEq/L Chloride (98-109) mEq/L Carbon Dioxide (19-29) mEq/L BUN (7-20) mg/dL Creatinine (0.57-1.11) mg/dL Est GFR ( Amer) (> 60) Est GFR (Non-Af Amer) (> 60) BUN/Creatinine Ratio (6-26) Glucose (70-99) mg/dL Calculated Osmolality (280-300) Calcium (8.6-10.8) mg/dL Troponin I (0-0.03) ng/mL B-Natriuretic Peptide 138 H (0-100) pg/mL Blood Type A NEGATIVE Antibody Screen NEGATIVE - Radiology Data Radiology results reviewed: Yes I reviewed the patient's radiology results. - EKG Data EKG attestation: Yes I reviewed and interpreted this EKG. EKG shows normal: Reports: sinus rhythm Rate: Reports: normal (Rate 89 bpm OR 165 QRS 89 QTc 384) [place]/QRS: Reports: normal Interpretation: Reports: no acute changes
--- NOTE | 2016-06-04 12:48 | Emergency Department Note ---
START Narrative - START START: I examined this patient and my medical decision-making was reviewed with the SCHOOL PROGRAM DIRECTOR/PA/Advanced Practice Nurse/Resident Physician. I agree with the documented findings, disposition and treatment plan as described except to the extent set forth below. ED attending note: Patient seen with emergency medicine resident Dr. Ruby. Please see a copy of his note for details of the H&P, evaluation, management and disposition of this patient. We independently had [id number] contact with the patient Briefly: 75-year-old female metastatic melanoma CT scan [address] weeks [address] with a [address] guided lung biopsy showing increasing right lung mass. Hemoptysis for the past day or so feeling weak. Patient is hemodynamically stable undergoing ED workup with likely admission for complications of her metastatic cancer. Provided 35 minutes of critical care services to this patient. Disposition pending.
[2016-06-04 13:10] LABS: Basophils % 0.9 %; Eosinophils % 0.9 %; Hematocrit 31.1 % (35.3-44.9); Immature Granulocytes % 0.5 % (0-4); Lymphocytes # 0.3 K/mcL (0.6-4.6); Lymphocytes % 15.6 %; Mean Corpuscular HGB Conc 30.5 g/dL (31.6-35.5); Mean Corpuscular Hemoglobin 24.5 pg (28.0-33.3); Mean Corpuscular Volume 80.4 fL (83.0-100.0); Mean Platelet Volume 8.5 fL (9.4-12.4); Monocytes # 0.4 K/mcL (0.0-1.3); Monocytes % 16.5 %; Neutrophils # 1.4 K/mcL (1.6-8.9); Platelet Count 199 K/mcL (140-400); Red Blood Count 3.87 M/mcL (3.82-4.97); Red Cell Distribution Width 16.9 % (11.5-14.5); Segmented Neutrophils % 65.6 %
[2016-06-04 13:12] LABS: Hemoglobin 9.5 g/dL (11.5-15.4)
[2016-06-04 13:22] LABS: BUN/Creatinine Ratio 22 (6-26); Blood Urea Nitrogen 20 mg/dL (7-20); Calcium 8.9 mg/dL (8.6-10.8); Carbon Dioxide 22 mEq/L (19-29); Chloride 107 mEq/L (98-109); Glucose 100 mg/dL (70-99); Osmolality,Calculated 285 (280-300); Potassium 4.3 mEq/L (3.5-4.5); Sodium 136 mEq/L (136-145); eGFR For African Americans > 60 (> 60); eGFR For Non-African Americans > 60 (> 60)
[2016-06-04 13:24] LABS: INR 1.1; Prothrombin Time 11.9 Seconds (9.4-12.1)
[2016-06-04 13:27] LABS: Activated Partial Thrombo Time 32.9 Seconds (26.0-36.0)
[2016-06-04] MEDS ORDERED: Ipratropium/Albuterol Neb 3 ML IH ONE (14:31)
[2016-06-04] MEDS ORDERED: Ondansetron 4 MG/2 ML VIAL IVP PRN (18:39)
[2016-06-04] MEDS ORDERED: Naloxone 0.4 MG/ML INJ IVP PRN (18:39)
[2016-06-04] MEDS ORDERED: Sennosides/Docusate Sodium TABLET PO PRN (18:44)
[2016-06-04] MEDS ORDERED: *HR* OxyCODONE/APAP 5/325 TABLET PO PRN (18:44)
[2016-06-04] MEDS ORDERED: Magic Mouthwash 10 ML UD Cup PO PRN (18:44)
[2016-06-04] MEDS ORDERED: *HR* LORazepam 0.5 MG TABLET PO PRN (18:44)
[2016-06-04 18:58] LABS: Hematocrit 30.8 % (35.3-44.9); Hemoglobin 9.4 g/dL (11.5-15.4)
--- NOTE | 2016-06-04 23:36 | Internal Med History&Physical ---
Date of Encounter: 06/04/16 Time of Encounter: 18:00 Assessment and Plan (1) Hemoptysis Current visit: Yes Status: Acute 1 patient has been experiencing hemoptysis for approximately. She does have past history of stage IV melanoma with metastases to lung. She is undergoing chemotherapy with oncology treatment was May 22. She is not on any blood thinners She has had some shortness of breath on exertion however she appears stable at this time. We will consult pulmonary for possible bronchoscopy will make patient nothing by mouth after midnight (2) Metastatic melanoma Current visit: No Status: Chronic 1 she is being followed by oncology she is receiving chemotherapy or loss treatment was in May 22. We will continue with oncology as outpatient and will consult as needed (3) DVT prophylaxis Current visit: No Status: Acute 1 MIKE montoya Internal Medicine - H&P: HPI Chief complaint: Hemoptysis Admitted From: Emergency Dept Plans for Post Hospital Care: Home History of present illness: Ms. Severino is a 75 year old female past medical history of stage IV melanoma metastasis to lungs and brain hyperlipidemia hypertension GERD the patient has been receiving chemotherapy for stage IV melanoma last treatment was on May 22. Patient states for past week she has been experiencing hemoptysis at first it was just a small amount specks here and there she has also been experiencing some shortness of breath on exertion she is not on any oxygen at home. She denies any fevers chills nausea vomiting diarrhea chest pain palpitations or sick contacts. she is presented to the ER with the above complaints. [facility] records patient's lab work did reveal hemoglobin 9.5 WBC 2.1 she is afebrile EKG with normal sinus rhythm. Chest x-ray revealed nothing acute. She was admitted for further work up evaluation. Presently patient denies any chest pain shortness of breath she does have a cough however she is not coughing up any blood this time. She does not appear to be in respiratory distress and her lung sounds are clear with crackles in the bases. She is requesting something to eat. She hemodynamic stable to time. I reviewed his case with Dr. Montes who agrees with plan. Past Med Surg Social Fam HX - Past Medical History Medical history: cancer, GERD Psychiatric history: anxiety - Past Surgical History Surgical History: appendectomy, cancer surgery, cholecystectomy, hysterectomy, other - Social History Smoking Status: Former smoker Smokeless Tobacco Status: No Alcohol use: none Drug use: none - Family History Mother Living Status: Hx Family Cardiac Disorders: No Hx Family Respiratory Disorders: No Hx Family Cancer: Yes (pancreatic) Hx Family GI Disorders: No Hx Family Endocrine Disorder: No Hx Family Neuromuscular Disorders: No Hx Family Neurologic Disorders: No Hx Family HEENT Disorders: No Hx Family Autoimmune Disorders: No Father Living Status: Hx Family Cardiac Disorders: No Hx Family Respiratory Disorders: No Hx Family Cancer: No Hx Family GI Disorders: No Hx Family Endocrine Disorder: No Hx Family Neuromuscular Disorders: No Hx Family Neurologic Disorders: No Hx Family HEENT Disorders: No Hx Family Autoimmune Disorders: No Internal Medicine - H&P: Meds LORazepam [Ativan] 0.5 - 1 mg PO Q6HR PRN #90 tablet 06/23/15 [Rx] Ca/D3/Mag#11/Zinc/Residence Life Director/Tucker/Bor [Caltrate 600+D Plus Tablet] 1 tab PO DAILY 08/15 [History] PredniSONE 10 mg PO DAILY 08/25/15 [History] Omeprazole [PriLOSEC] 20 mg PO DAILY #90 capsule. 04/12/16 [Rx] Magic Mouthwash 10 ml PO TID PRN #260 ml 05/22/16 [Rx] Ondansetron [Zofran] 8 mg PO Q8HR PRN #90 tablet 05/22/16 [Rx] Prochlorperazine Maleate [Compazine] 10 mg PO Q6HR PRN #60 tablet 05/22/16 [Rx] Methylphenidate HCl [Ritalin] 5 mg PO QAM #30 tablet 05/30/16 [Rx] Metoprolol [Lopressor] 12.5 mg PO BID #60 tablet 05/30/16 [Rx] Oxycodone HCl/Acetaminophen [Percocet 5-325 mg Tablet] 1 tab PO Q4H PRN [History] Potassium Chloride [K-Tab ER] 20 meq PO DAILY 06/04/16 [History] Sennosides/Docusate Sodium [Senna Plus] 2 tab PO DAILY PRN 06/04/16 [History] Allergies No Known Allergies Allergy (Verified 04/15/16 20:55) All Systems PM: A 10-system review of systems was performed and is negative for pertinent findings except as documented above in the HPI. - Constitutional Constitutional: no chills, no fever(s), no night sweats - EENT Nose, mouth and throat: no dysphagia, no nasal discharge, no neck pain, no sore throat - Cardiovascular Cardiovascular ROS IM: no chest pain, no diaphoresis, no dyspnea, no lightheadedness, no palpitations, no syncope - Respiratory Respiratory: cough, hemoptysis, dyspnea on exertion - Gastrointestinal Gastrointestinal: no abdominal pain, no diarrhea, no hematemesis, no hematochezia, no melena, no nausea, no vomiting - Genitourinary Genitourinary: no change in urinary stream, no dysuria, no flank pain, no hematuria - Musculoskeletal Musculoskeletal ROS IM: no numbness, no tingling - Integumentary Integumentary IM: no rash, no unusual bruising - Neurological Neurological ROS: no confusion, no convulsions, no focal weakness, no numbness, no tingling, no tremor(s) - Hematologic/Lymphatic Hematologic/Lymphatic: no easy bruising - Constitutional Vitals: Temp Pulse Resp BP Pulse Ox 97.3 F L 120 18 113/69 96 06/04/16 19:37 06/04/16 19:37 06/04/16 19:37 06/04/16 19:37 06/04/16 19:37 General appearance: Present: A&O X 3 - Head Head exam: Present: atraumatic, normocephalic - Respiratory Respiratory exam: Present: rales. Absent: accessory muscle use, rhonchi, wheezes - Cardiovascular Cardiovascular exam: Present: RRR, +S1, +S2. Absent: diastolic murmur, gallop, rubs, systolic murmur - GI/Abdominal GI/Abdominal exam: Present: normal bowel sounds, soft, no peritoneal signs. Absent: distended, tenderness - Extremities Exam Extremities exam: Present: warm, radial pulses palpable and symetrical. Absent : calf tenderness, cyanotic, pedal edema - Neurological Exam Neurological exam: Present: CN II-XII intact, oriented X3, no focal deficits. Absent: pronater drift, facial droop, speech deficit - Skin Skin exam: Present: dry, intact Internal Med - H&P Results - Labs CBC & Chem 7: 06/04/16 18:51 06/04/16 13:02 Labs: Short CBC 06/04/16 Range/Units 18:51 Hgb 9.4 L (11.5-15.4) g/dL Hct 30.8 L (35.3-44.9) % - EKG Data EKG shows normal: sinus rhythm - EKG Data Interpretation IM: normal EKG - Diagnostic Studies Chest x-ray Additional comments: Chest X-Ray 06/04/16 12:15 IMPRESSION: 1. Persistent mass in the right lung, previously evaluated. Patient had a biopsy on May 03, 2016. 2. Persistent bilateral apical scarring with mild bronchiectasis. 3. Density at the left ventricular apex may represent pericardial fat; however, CT would be more sensitive to exclude a mass. D/ / Shukri Hyde MD / Shukri Hyde MD Interpreting Provider: Shukri Hyde MD Chest CTA 06/04/16 14:13 IMPRESSION: No evidence of pulmonary embolism. Re-demonstration of a mostly necrotic right upper lobe mass. There is a small amount of air in the mass possibly related to necrosis or superinfection. Extensive pleuroparenchymal thickening in both upper lobes. There is no evidence of significant adenopathy. Abdominal views demonstrate a hypodense geographic region in the liver, which may represent metastatic disease. This was previously seen as well. D/ / 06/04/2016 17:43:43 Alisson Morris MD / earnoisidro Interpreting Provider: Alisson Morris MD
[2016-06-05 04:57] LABS: BUN/Creatinine Ratio 22 (6-26); Blood Urea Nitrogen 19 mg/dL (7-20); Calcium 8.7 mg/dL (8.6-10.8); Carbon Dioxide 24 mEq/L (19-29); Chloride 109 mEq/L (98-109); Glucose 83 mg/dL (70-99); Osmolality,Calculated 289 (280-300); Potassium 4.3 mEq/L (3.5-4.5); Sodium 139 mEq/L (136-145); eGFR For African Americans > 60 (> 60); eGFR For Non-African Americans > 60 (> 60)
[2016-06-05] MEDS: Acetaminophen 325 MG TABLET PO PRN (05:55)
[2016-06-05] MEDS: predniSONE 10 MG TABLET PO SCH (09:06)
[2016-06-05] MEDS: (Ca/D3/Mag#11/Zinc/Cop/Mang/Bor [Caltrate 600+D Plus PO SCH (09:08)
[2016-06-05] MEDS: Methylphenidate HCl 5 MG TABLET PO SCH (09:09)
--- NOTE | 2016-06-05 13:52 | Pulmonology Consult Note ---
Date of Encounter: 06/05/16 Time of Encounter: 13:35 Assessment and Plan (1) Abnormal CT scan, chest Current Visit: Yes Status: Acute (2) Anemia Current Visit: Yes Status: Acute Qualifiers: Anemia type: unspecified type Qualified Code(s): D64.9 - Anemia, unspecified (3) Hemoptysis Current Visit: Yes Status: Acute (4) Lung mass Current Visit: Yes Status: Acute History of Present Illness Consult date: 06/05/16 Requesting physician: Guillermo Benson Reason for consult: lung mass, abnormal CXR/CT Chief complaint: Hemoptysis History of present illness: 75-year-old white female with a medical history significant for metastatic melanoma who presented to the hospital on 06/04/2016 for evaluation of hemoptysis. The patient reports a long-standing history of intermittent hemoptysis. This is thought to be secondary to metastatic melanoma to the lung. Over the past 2 weeks her hemoptysis has worsened. She reports a teaspoon to tablespoon of bright or dark red blood being coughed up at least 10 times per day. She denies any purulent sputum. No fever/chills. No night sweats. No chest pain. Past Med Surg Social Fam HX - Past Medical History Medical history: cancer, GERD Psychiatric history: anxiety - Past Surgical History Surgical History: appendectomy, cancer surgery, cholecystectomy, hysterectomy, other - Social History Smoking Status: Former smoker Smokeless Tobacco Status: No Alcohol use: none Drug use: none - Family History Mother Living Status: Hx Family Cardiac Disorders: No Hx Family Respiratory Disorders: No Hx Family Cancer: Yes (pancreatic) Hx Family GI Disorders: No Hx Family Endocrine Disorder: No Hx Family Neuromuscular Disorders: No Hx Family Neurologic Disorders: No Hx Family HEENT Disorders: No Hx Family Autoimmune Disorders: No Father Living Status: Hx Family Cardiac Disorders: No Hx Family Respiratory Disorders: No Hx Family Cancer: No Hx Family GI Disorders: No Hx Family Endocrine Disorder: No Hx Family Neuromuscular Disorders: No Hx Family Neurologic Disorders: No Hx Family HEENT Disorders: No Hx Family Autoimmune Disorders: No Medications and Allergies LORazepam [Ativan] 0.5 - 1 mg PO Q6HR PRN #90 tablet 06/23/15 [Rx] Ca/D3/Mag#11/Zinc/Regional Psychiatric Director/Tucker/Bor [Caltrate 600+D Plus Tablet] 1 tab PO DAILY 08/15 [History] PredniSONE 10 mg PO DAILY 08/25/15 [History] Omeprazole [PriLOSEC] 20 mg PO DAILY #90 capsule. 04/12/16 [Rx] Magic Mouthwash 10 ml PO TID PRN #260 ml 05/22/16 [Rx] Ondansetron [Zofran] 8 mg PO Q8HR PRN #90 tablet 05/22/16 [Rx] Prochlorperazine Maleate [Compazine] 10 mg PO Q6HR PRN #60 tablet 05/22/16 [Rx] Methylphenidate HCl [Ritalin] 5 mg PO QAM #30 tablet 05/30/16 [Rx] Metoprolol [Lopressor] 12.5 mg PO BID #60 tablet 05/30/16 [Rx] Oxycodone HCl/Acetaminophen [Percocet 5-325 mg Tablet] 1 tab PO Q4H PRN [History] Potassium Chloride [K-Tab ER] 20 meq PO DAILY 06/04/16 [History] Sennosides/Docusate Sodium [Senna Plus] 2 tab PO DAILY PRN 06/04/16 [History] Allergies No Known Allergies Allergy (Verified 04/15/16 20:55) All Systems: A 10-system review of systems was performed and is negative for pertinent findings except as documented above in the HPI. Physical Examination Vital Signs: Vital Signs, Last 4 Hours Temp Pulse Resp BP Pulse Ox 06/05/16 11:12 97.1 F L 96 20 113/73 95 General: no acute distress Eyes: nonicteric ENT: oropharynx moist Neck: supple, no lymphadenopathy Lungs: Clear to auscultation bilaterally Cardiovascular: regular rate and rhythm Gastrointestinal: normoactive bowel sounds, soft, non-tender, non-distended Integumentary: Evidence of excisional biopsies noted, most notably of the nose Extremities: no cyanosis, no edema Musculoskeletal: no deformities Neuro: normal mental status, non-focal exam Psych: mood appropriate, affect normal Results - Laboratory Findings CBC and BMP: 06/04/16 18:51 06/05/16 04:29 PT/INR, D-dimer PT 11.9 Seconds (9.4-12.1) 06/04/16 13:02 Abnormal lab findings: Abnormal lab results WBC 2.1 K/mcL (4.3-11.1) L D 06/04/16 13:02 Hgb 9.4 g/dL (11.5-15.4) L 06/04/16 18:51 Hct 30.8 % (35.3-44.9) L 06/04/16 18:51 MCV 80.4 fL (83.0-100.0) L 06/04/16 13:02 MCH 24.5 pg (28.0-33.3) L 06/04/16 13:02 MCHC 30.5 g/dL (31.6-35.5) L 06/04/16 13:02 RDW 16.9 % (11.5-14.5) H 06/04/16 13:02 MPV 8.5 fL (9.4-12.4) L 06/04/16 13:02 Neutrophils # 1.4 K/mcL (1.6-8.9) L 06/04/16 13:02 Lymphocytes # 0.3 K/mcL (0.6-4.6) L 06/04/16 13:02 POC Glucose 107 (58-89) H 06/05/16 11:25 B-Natriuretic Peptide 138 pg/mL (0-100) H 06/04/16 13:02 Consult Discharge Plan - Plan Referrals: Kareem Corbin MD [Primary Care Provider] - 06/19/16 8:30 am
[2016-06-05] MEDS ORDERED: Levofloxacin 750 MG/150 ML 750 MG/150 ML BAG IVPB SCH (14:00)
--- NOTE | 2016-06-05 15:32 | Electrocardiograph Report ---
[place] [id number] Test Date: 2016-06-04 Pat Name: Jenn Severino Department: 103 Room: 3A Gender: F An/Syq 13 Nav/C2 Operator: : 1940 Requested By: [place] Ruby Order Number: [id number] Reading MD: Hal Hill MD Measurements Intervals [place] Rate: 89 P: 41 UT: 165 QRS: -42 QRSD: 89 T: 41 QT: 337 QTc: 384 Interpretive Statements SINUS RHYTHM MARKED LEFT AXIS DEVIATION LOW QRS VOLTAGE IN PRECORDIAL LEADS Poor R wave progression Electronically Signed On 06-05-2016 15:30:27 EDT by Hal Hill MD
--- NOTE | 2016-06-05 16:08 | Internal Med Progress Note ---
Date of Encounter: 06/05/16 Time of Encounter: 16:06 - Assessment and plan (1) Anemia Current Visit: Yes Status: Acute Assessment and plan: 2/2 hemoptysis, hb drop to 9.4 . consulted pulmonary, does not need transfusion for now. planned for bronchoscopy on . Qualifiers: Anemia type: unspecified type Qualified Code(s): D64.9 - Anemia, unspecified (2) Hemoptysis Current Visit: Yes Status: Acute Assessment and plan: does not have active hemoptysis today. planned for bronch on with pulmonary, appreciate pulm recommendations. will closely watch for active bleeding, may need IR guided embolization if severe as per pulmonary. (3) Lung mass Current Visit: Yes Status: Acute Assessment and plan: Has history of metastatic melanoma, with lung metastases. Recent CT showed right upper lobe necrotic lung mass. Has been started on IV Zosyn by pulmonary. We will continue to monitor. Oncology has also been consulted, will follow recommendations. (4) Melanoma Current Visit: No Status: Inactive Assessment and plan: she is being followed by oncology she is receiving chemotherapy or loss treatment was in May 22. We will continue with oncology consult recommendations Qualifiers: Melanoma location: unspecified site Qualified Code(s): C43.9 - Malignant melanoma of skin, unspecified - Time Spent With Patient 25 - 35 minutes - Subjective Interval history: seen at the bedside, admitted for hemoptysis, h/o metastatic melanoma with lung mets denies any chest pain or sob,has some cough , has been having hemoptysis for the last week. CT chest showed rt. upper lobe necrotic mass, currnetly ongoing chemotherapy. have consulted pulmonary and oncology. - Constitutional Vitals: Temp Pulse Resp BP Pulse Ox 97.2 F L 94 14 113/75 97 06/05/16 14:29 06/05/16 14:29 06/05/16 14:29 06/05/16 14:29 06/05/16 14:29 General appearance: Present: A&O X 3 Exam: - Head Head exam: Present: atraumatic, normocephalic - Respiratory Respiratory exam: Present: rales. Absent: accessory muscle use, rhonchi, wheezes - Cardiovascular Cardiovascular exam: Present: RRR, +S1, +S2. Absent: diastolic murmur, gallop, rubs, systolic murmur - GI/Abdominal GI/Abdominal exam: Present: normal bowel sounds, soft, no peritoneal signs. Absent: distended, tenderness - Extremities Exam Extremities exam: Present: warm, radial pulses palpable and symetrical. Absent : calf tenderness, cyanotic, pedal edema - Neurological Exam Neurological exam: Present: CN II-XII intact, oriented X3, no focal deficits. Absent: pronater drift, facial droop, speech deficit - Skin Skin exam: Present: dry, intact Internal Medicine: Result - Labs CBC & Chem 7: 06/04/16 18:51 06/05/16 04:29 Labs: Short CBC 06/04/16 Range/Units 18:51 Hgb 9.4 L (11.5-15.4) g/dL Hct 30.8 L (35.3-44.9) % BMP 06/05/16 04:29 Sodium 139 Potassium 4.3 Chloride 109 Carbon Dioxide 24 BUN 19 Creatinine 0.88 Glucose 83 Calcium 8.7 - ABG Interpretation ABG results: PT/INR, D-dimer PT 11.9 Seconds (9.4-12.1) 06/04/16 13:02 Consult Discharge Plan - Plan Referrals: Shaquille,Kareem Pitt MD [Primary Care Provider] - 06/19/16 8:30 am
[2016-06-05] MEDS: Piperacillin/Tazobactam 3.375 GM in D5% in Water (Mini-Bag+) 100 ML IVPB SCH (16:12)
[2016-06-06] MEDS: Piperacillin/Tazobactam 3.375 GM in D5% in Water (Mini-Bag+) 100 ML IVPB SCH ×3 (00:09→15:03)
--- NOTE | 2016-06-06 06:27 | Oncology Inp Consult Note ---
Date of Encounter: 06/06/16 Time of Encounter: 08:56 - Data of Consult Patient: known to practice within the last 3 years Consult date: 06/06/16 Requesting Physician: Guillermo Benson MD Primary Care Provider: Kareem Corbin MD - Consult Narrative Reason for consult: Metastatic melanoma History of present illness: Ms. Severino is a 75 year old female patient of the cancer center who has established oncologic care with mi for metastatic melanoma. She was last seen in the office 05/30/16. I have summarized patient's heme/onc background below based on my most recent office report. She has a history of multiple skin cancers resected by dermatology. She lost her in October 2014 d/t advanced Alzheimer's and was feeling poorly which she attributed to her grief. She ultimately presented to her PCP with abdominal cramps and hematochezia associated with 20 pound weight loss. She would be found to be anemic and had a colonoscopy to Dr. Parra which noted several lesions in her bowel. Biopsied confirmed metastatic melanoma with cells positive for S100. CT chest abdomen and pelvis demonstrated right axillary lymphadenopathy, a new right lung mass vs 2009, and a large,hypodense mass in the right lobe of the liver. Brain imaging demonstrated a large heterogeneously enhancing,left temporal lobe mass surrounding edema and smaller enhancing lesion in the right parieto- occipital lobe. She underwent excision of her larger mass by Dr. Bradley at [facility] due to vasogenic edema and mass effect. Followed by SBRT to her smaller lesion and radiation to her resection bed and was treated the week of 05/24/2015. BRAF mutation and C-KIT mutation testing negative. She received Yervoy and Nivolumab x 3 of 4 planned cycles 05/21-07/07/15.Stopped due to severe colitis requiring hospitalization and prolonged steroid taper. She received Nivolumab 4 cycles from 09/30-11/12/15 concomitant with low-dose steroids (prednisone 10 mg daily). Stopped due to progression based on chest CT from 11/23/15 showing enlarging lung mass. She had consultation at [facility] with Dr. Africa Paz 12/13/15 regarding treatment options and recommendation was to consider temozolomide versus clinical trial. Also recommended foundation 1 mutation testing. 01/07/2016- Foundation One testing on brain specimen [id number] from 04/20/15: Genomic Alterations Identified: BRAF [id number]; CDK4 amplification; ERBB3 amplification; ARID1A Q473; FANCA L875; GLI1 amplification; TERT promoter - 146C T Additional Findings: Tumor Mutation [place] TMB-High 50 Muts/Mb. Additional Disease-relevant Genes with No Reportable Alterations Identified NRAS ; KIT Received single agent Temozolomide daily 5 every 28 days from 01/29-.Stopped due to progression Most recent restaging scans with CT chest abdomen and pelvis 04/14- showing: Enlarging, 5.6 cm right middle lobe mass. Previously measured 4.8 cm. Biapical scarring with traction bronchiectasis. Stable hypodense thyroid nodules. Largest measuring up to 1.5 cm. Diverticular disease with no acute abnormalities. She was hospitalized 04/24-04/26/16 for acute abdominal pain associated with constipation. She had recently been seen with unexplained rectal bleeding. She had a colonoscopy 04/26/[address] Thurman which revealed a large, pedunculated polyp in the rectosigmoid area resected. Pathology confirmed melanoma and rectosigmoid polyp. She had a CT-guided biopsy of a lung mass 05/03/16 which confirmed a spindle cell neoplasm but immunostaining pattern was not definitive for melanoma. Her specimen was sent for second opinion/expert consultation with [facility] lab and melanoma considered likely based on morphology. Repeat mutation testing was again negative for BRAF. She has also been monitored with brain MRI every 3 months. Most recent from 03/14/16 showed expected posttreatment changes with no evidence for residual or recurrent malignancy. She started palliative radiation to her lung mass per Dr. Aaron on 05/19/16. Tolerating treatment well with no respect to side effects. Stop after 2 doses due to safety concerns with accidental, concurrent administration of chemotherapy with high-dose radiation. At this time, there is no plan to resume radiation therapy in the near future. Started palliative chemotherapy for refractory melanoma on 05/22/16. Receiving Neulasta support to reduce risk for neutropenia and associated complications related to her previous myelosuppressive therapy, advanced age etc. Chronic problems: She has a solitary left kidney due to right nephrectomy in 1995 reported for kidney cancer. Records not available. She has ongoing follow-up with dermatology for skin cancer surveillance including recurrent, nonmelanoma skin cancer. She is followed by Dr. Jimena Arora. She was evaluated in 2009 for unexplained hemoptysis by Dr. Garcia and at bronchoscopy which returned negative for malignancy. Pathology showed benign pulmonary tissue. Patient is currently hospitalized for progressive hemoptysis which has worsened since I last saw her in the office. Chest CT on admission showed a small amount of air in her known left lung mass possibly related to necrosis or superinfection. Extensive pleuroparenchymal thickening in both upper lobes. There is no significant adenopathy. Abdominal views demonstrate a hypodense geographic region in the liver, which may represent metastatic disease. Oncology is consulted re: patient's underlying melanoma. Patient seen and examined at bedside. Chart review for details of ongoing by hospital team which is much appreciated. At time of evaluation, she still markedly dyspneic. Fortunately, she is maintaining good oxygenation operating room. She has been evaluated by pulmonary and is scheduled for bronchoscopy later today. He has felt some discussion regarding possible embolization of a bronchial artery if hemoptysis remains problematic despite endobronchial measures. Rest of past medical, surgical, family, social history detailed below and verified with patient today. Review of systems: 12 point review of systems performed with patient and positive findings noted in history of present illness. All other systems are negative: Physical exam: Vital Signs Temp 97.8 F 06/06/16 07:00 Pulse 110 06/06/16 09:55 Resp 16 06/06/16 09:55 BP 140/68 06/06/16 09:55 Pulse Ox 97 06/06/16 09:55 GENERAL: Alert and oriented, acutely ill, dyspneic appearing. Mental Status: Affect appropriate for circumstances HEENT: Sclerae anicteric. No mucositis or thrush. No other oral or pharyngeal lesions or erythema. Skin: No rashes or petechiae. No evidence of skin malignancy Lymph nodes: No cervical, supraclavicular, axillary, or inguinal adenopathy. Lungs: Clear to auscultation bilaterally. Clear to percussion bilaterally. Cardiovascular: Regular rate and rhythm. No gallops, murmurs, or rubs. Abdomen: Soft, nontender; No organomegaly or masses palpable. Extremities: No edema. No calf swelling or tenderness. No joint deformity. Neurologic: Alert, normal gait; no focal weakness or sensory abnormalities. Results: Laboratory Last Values WBC 3.2 K/mcL (4.3-11.1) L D 06/06/16 08:54 RBC 4.01 M/mcL (3.82-4.97) 06/06/16 08:54 Hgb 10.1 g/dL (11.5-15.4) L 06/06/16 08:54 Hct 31.9 % (35.3-44.9) L 06/06/16 08:54 MCV 79.6 fL (83.0-100.0) L 06/06/16 08:54 MCH 25.2 pg (28.0-33.3) L 06/06/16 08:54 MCHC 31.7 g/dL (31.6-35.5) 06/06/16 08:54 RDW 17.7 % (11.5-14.5) H 06/06/16 08:54 Plt Count 213 K/mcL (140-400) 06/06/16 08:54 MPV 8.7 fL (9.4-12.4) L 06/06/16 08:54 Immature Gran % 2.2 % (0-4) 06/06/16 08:54 Seg Neutrophils % 51.1 % 06/06/16 08:54 Lymphocytes % 22.9 % 06/06/16 08:54 Monocytes % 20.6 % 06/06/16 08:54 Eosinophils % 2.2 % 06/06/16 08:54 Basophils % 1.0 % 06/06/16 08:54 Neutrophils # 1.6 K/mcL (1.6-8.9) 06/06/16 08:54 Lymphocytes # 0.7 K/mcL (0.6-4.6) 06/06/16 08:54 Monocytes # 0.7 K/mcL (0.0-1.3) 06/06/16 08:54 Eosinophils # 0.1 K/mcL (0.0-0.6) 06/06/16 08:54 Basophils # 0.0 K/mcL (0.0-0.2) 06/06/16 08:54 Nucleated RBCs/100 WBC 1.3 /100 WBC (0) H 06/06/16 08:54 Platelet Estimate Normal (Normal) 06/06/16 08:54 PT 12.2 Seconds (9.4-12.1) H 06/06/16 08:54 INR 1.1 06/06/16 08:54 APTT 32.9 Seconds (26.0-36.0) 06/04/16 13:02 Sodium 138 mEq/L (136-145) 06/06/16 08:54 Potassium 4.3 mEq/L (3.5-4.5) 06/06/16 08:54 Chloride 107 mEq/L (98-109) 06/06/16 08:54 Carbon Dioxide 21 mEq/L (19-29) 06/06/16 08:54 BUN 16 mg/dL (7-20) 06/06/16 08:54 Creatinine 0.86 mg/dL (0.57-1.11) 06/06/16 08:54 Est GFR ( Amer) > 60 (> 60) 06/06/16 08:54 Est GFR (Non-Af Amer) > 60 (> 60) 06/06/16 08:54 BUN/Creatinine Ratio 19 (6-26) 06/06/16 08:54 Glucose 99 mg/dL (70-99) 06/06/16 08:54 POC Glucose 103 (58-89) H 06/06/16 05:57 Calculated Osmolality 287 (280-300) 06/06/16 08:54 Calcium 8.3 mg/dL (8.6-10.8) L 06/06/16 08:54 Troponin I 0.00 ng/mL (0-0.03) 06/04/16 13:02 B-Natriuretic Peptide 138 pg/mL (0-100) H 06/04/16 13:02 Blood Type A NEGATIVE 06/04/16 13:02 Antibody Screen NEGATIVE 06/04/16 13:02 Radiographic studies: I personally reviewed and interpreted patient's most recent imaging studies dated and 06/04/16. I discussed the findings with the patient today. Chest X-Ray 06/04/16 12:15 IMPRESSION: 1. Persistent mass in the right lung, previously evaluated. Patient had a biopsy on May 03, 2016. 2. Persistent bilateral apical scarring with mild bronchiectasis. 3. Density at the left ventricular apex may represent pericardial fat; however, CT would be more sensitive to exclude a mass. D/ / Shukri Hyde MD / Shukri Hyde MD Interpreting Provider: Shukri Hyde MD Chest CTA 06/04/16 14:13 IMPRESSION: No evidence of pulmonary embolism. Re-demonstration of a mostly necrotic right upper lobe mass. There is a small amount of air in the mass possibly related to necrosis or superinfection. Extensive pleuroparenchymal thickening in both upper lobes. There is no evidence of significant adenopathy. Abdominal views demonstrate a hypodense geographic region in the liver, which may represent metastatic disease. This was previously seen as well. D/ / 06/04/2016 17:43:43 Alisson Morris MD / earnold Interpreting Provider: Alisson Morris MD Impression/recommendations: Unexplained hemoptysis: Etiology unclear. Currently being evaluated by pulmonary. Impression appreciated. Possibly related to her underlying melanoma. We'll await results of planned bronchoscopy today and make further recommendations based on findings. Metastatic melanoma: She is currently receiving palliative combination chemotherapy. Her last visit chemotherapy was 05/22/16. Next is schedule 06/13/16. Of course, chemotherapy would be on hold until her overall clinical condition improves and she is medically optimal otherwise. Anemia/leukopenia: Anemia related to ongoing hemoptysis. There may be additional contribution from recent myelosuppressive chemotherapy. No intervention needed for current count but she will need continued monitoring. Would recommend transfusion support if hemoglobin drops below 7. Leukopenia is likely due to myelosuppression from recent chemotherapy. She did receive Neulasta support and I expect her to maintain acceptable WBC counts during this hospital admission. His neutropenia becomes an issue, will consider starting Neupogen in addition to previously received Neulasta. We'll follow the patient along side you during this hospitalization but please do not hesitate to call regarding interval hematologic questions as they arise. Thank you for your excellent ongoing care for allowing us to see her while in- house. This report was created using voice recognition software and may contain errors. It was signed but not edited to expedite communication. Past Med Surg Social Fam HX - Past Medical History Medical history: cancer, GERD Psychiatric history: anxiety - Past Surgical History Surgical History: appendectomy, cancer surgery, cholecystectomy, hysterectomy, other - Social History Smoking Status: Former smoker Smokeless Tobacco Status: No Alcohol use: none Drug use: none - Family History Mother Living Status: Hx Family Cardiac Disorders: No Hx Family Respiratory Disorders: No Hx Family Cancer: Yes (pancreatic) Hx Family GI Disorders: No Hx Family Endocrine Disorder: No Hx Family Neuromuscular Disorders: No Hx Family Neurologic Disorders: No Hx Family HEENT Disorders: No Hx Family Autoimmune Disorders: No Father Living Status: Hx Family Cardiac Disorders: No Hx Family Respiratory Disorders: No Hx Family Cancer: No Hx Family GI Disorders: No Hx Family Endocrine Disorder: No Hx Family Neuromuscular Disorders: No Hx Family Neurologic Disorders: No Hx Family HEENT Disorders: No Hx Family Autoimmune Disorders: No Medications and Allergies LORazepam [Ativan] 0.5 - 1 mg PO Q6HR PRN #90 tablet 06/23/15 [Rx] Ca/D3/Mag#11/Zinc/Phlebotomist Associate/Tucker/Bor [Caltrate 600+D Plus Tablet] 1 tab PO DAILY 08/15 [History] PredniSONE 10 mg PO DAILY 08/25/15 [History] Omeprazole [PriLOSEC] 20 mg PO DAILY #90 capsule. 04/12/16 [Rx] Magic Mouthwash 10 ml PO TID PRN #260 ml 05/22/16 [Rx] Ondansetron [Zofran] 8 mg PO Q8HR PRN #90 tablet 05/22/16 [Rx] Prochlorperazine Maleate [Compazine] 10 mg PO Q6HR PRN #60 tablet 05/22/16 [Rx] Methylphenidate HCl [Ritalin] 5 mg PO QAM #30 tablet 05/30/16 [Rx] Metoprolol [Lopressor] 12.5 mg PO BID #60 tablet 05/30/16 [Rx] Oxycodone HCl/Acetaminophen [Percocet 5-325 mg Tablet] 1 tab PO Q4H PRN [History] Potassium Chloride [K-Tab ER] 20 meq PO DAILY 06/04/16 [History] Sennosides/Docusate Sodium [Senna Plus] 2 tab PO DAILY PRN 06/04/16 [History] Allergies No Known Allergies Allergy (Verified 04/15/16 20:55) Oncology - Exam - Constitutional Vitals: Temp Pulse Resp BP Pulse Ox 98.6 F 99 17 153/73 94 L 06/06/16 04:20 06/06/16 04:20 06/06/16 04:20 06/06/16 04:20 06/06/16 04:20 Consult Discharge Plan - Plan Referrals: Kareem Corbin MD [Primary Care Provider] - 06/19/16 8:30 am
[2016-06-06] MEDS ORDERED: *HR* Midazolam HCl 5 MG/5 ML VIAL IVP ONE (08:46)
[2016-06-06] MEDS ORDERED: *HR* FentaNYL (PF) 100 MCG/2 ML VIAL ONE (08:47)
[2016-06-06] MEDS ORDERED: Lidocaine Viscous Oral Soln 15 ML SOLUTION ONE (08:51)
--- NOTE | 2016-06-06 08:53 | Pre-Sedation Evaluation ---
Pre-sedation evaluation - Pre-sedation checklist Date of procedure: 06/06/16 Procedure: Bronchoscopy Recent Vitals: Last Vital Signs Temp 97.8 F 06/06/16 07:00 Pulse 105 06/06/16 07:00 Resp 19 06/06/16 07:00 BP 139/85 06/06/16 07:00 Pulse Ox 93 L 06/06/16 07:00 H&P (including ROS) documented in medical record: Yes Previous reaction to sedatives/anesthetics: No Dietary Status: NPO after Midnight Airway Assessment: Patient can open mouth completely, TMJ function normal, Micrognathia (under-bite, receding chin) absent, Neck with adequate range of motion Dentition: No loose teeth or bridges Possible difficult airway: No ASA Classification *see protocol: CLASS III-Severe systemic disease Plan of Care: Pt appropriate candidate for procedure/moderate/conscious sedation , Risks/benefits of procedure/sedation discussed w/ patient/family
[2016-06-06 09:07] LABS: Eosinophils # 0.1 K/mcL (0.0-0.6); Eosinophils % 2.2 %; Hematocrit 31.9 % (35.3-44.9); Hemoglobin 10.1 g/dL (11.5-15.4); Immature Granulocytes % 2.2 % (0-4); Lymphocytes # 0.7 K/mcL (0.6-4.6); Lymphocytes % 22.9 %; Mean Corpuscular HGB Conc 31.7 g/dL (31.6-35.5); Mean Corpuscular Hemoglobin 25.2 pg (28.0-33.3); Mean Corpuscular Volume 79.6 fL (83.0-100.0); Mean Platelet Volume 8.7 fL (9.4-12.4); Monocytes # 0.7 K/mcL (0.0-1.3); Monocytes % 20.6 %; Neutrophils # 1.6 K/mcL (1.6-8.9); Nucleated Red Blood Cells 1.3 /100 WBC (0); Platelet Count 213 K/mcL (140-400); Red Blood Count 4.01 M/mcL (3.82-4.97); Red Cell Distribution Width 17.7 % (11.5-14.5); Segmented Neutrophils % 51.1 %
[2016-06-06 09:11] LABS: INR 1.1; Prothrombin Time 12.2 Seconds (9.4-12.1)
[2016-06-06 09:18] LABS: BUN/Creatinine Ratio 19 (6-26); Blood Urea Nitrogen 16 mg/dL (7-20); Calcium 8.3 mg/dL (8.6-10.8); Carbon Dioxide 21 mEq/L (19-29); Chloride 107 mEq/L (98-109); Glucose 99 mg/dL (70-99); Osmolality,Calculated 287 (280-300); Potassium 4.3 mEq/L (3.5-4.5); Sodium 138 mEq/L (136-145); eGFR For African Americans > 60 (> 60); eGFR For Non-African Americans > 60 (> 60)
[2016-06-06 09:26] LABS: Platelet Estimate Normal (Normal)
[2016-06-06] MEDS ORDERED: Albuterol 2.5 MG/3 ML NEBULIZER ONE (09:30)
[2016-06-06] MEDS ORDERED: *HR* Midazolam HCl 5 MG/5 ML VIAL IVP PRN (09:51)
[2016-06-06] MEDS ORDERED: Albuterol 2.5 MG/3 ML NEBULIZER IH ONE (09:51)
[2016-06-06] MEDS ORDERED: Lidocaine Viscous Oral Soln 15 ML SOLUTION MM ONE (09:51)
[2016-06-06] MEDS ORDERED: Tetracaine/Benzocaine/Butamben 200MG/SPRAY (100SPY/BOT) MM ONE (09:51)
[2016-06-06] MEDS ORDERED: Simethicone 40 MG/0.6 ML MLS IR ONE (09:51)
[2016-06-06] MEDS ORDERED: *HR* FentaNYL (PF) 100 MCG/2 ML VIAL IVP PRN (09:51)
[2016-06-06 11:06] LABS: Source of Body Fluid RML BAL
[2016-06-06] MEDS: (Ca/D3/Mag#11/Zinc/Cop/Mang/Bor [Caltrate 600+D Plus PO SCH (11:18)
[2016-06-06] MEDS ORDERED: Chloraseptic Spray 177 ML BOTTLE MM PRN (11:19)
--- NOTE | 2016-06-06 11:24 | Pulmonology Progress Note ---
Date of Encounter: 06/06/16 Time of Encounter: 11:22 Assessment and Plan (1) Hemoptysis Current Visit: Yes Status: Acute Hemoptysis is presumably due to metastatic melanoma to the lung. I performed bronchoscopy 06/06/2016 which revealed active bleeding from the right middle lobe. This corresponds with the site of her tumor noted on chest imaging. I did obtain a bronchoalveolar lavage and sent for culture. We will continue the Zosyn for now, although I did not see any purulent secretions on the bronchoscopy. No endoscopic therapeutic options as there are no endobronchial lesions noted. I discussed with interventional radiology and asked them to offer an opinion regarding bronchial artery embolization. (2) Abnormal CT scan, chest Current Visit: Yes Status: Acute I reviewed the CT scan of the chest, which revealed the previously noted right middle lobe lung mass and some associated infiltrates. There is some air in the mass which could represent necrosis versus bacterial superinfection ( possibly anaerobic). The infiltrates noted could represent blood or pneumonia. I have placed her on Zosyn for empiric treatment. Will follow up bronch cultures (aerobic, fungal, AFB, and viral). Remote history of TB, but this seems unlikely clinically. (3) Anemia Current Visit: Yes Status: Acute Multifactorial in etiology and due to acute blood loss and chemotherapy. Recommend transfusion for hemoglobin less than 7. Qualifiers: Anemia type: unspecified type Qualified Code(s): D64.9 - Anemia, unspecified (4) Lung mass Current Visit: Yes Status: Acute Status post previous biopsy which revealed likely malignant melanoma. No further indication for repeat biopsy at this time. Appreciate oncology evaluation. Will continue to follow. Subjective Principal diagnosis: hemoptysis Interval history: Increased work of breathing today, but patient minimizes this and states she also is short of breath. Hemoptosis persists without much change in volume (1 teaspoon to 1 tablespoon per episode and up to 10 episodes per day). No fevers/ chills. Objective PUL Vital signs: Last Vital Signs Temp 97.8 F 06/06/16 07:00 Pulse 110 06/06/16 09:55 Resp 16 06/06/16 09:55 BP 140/68 06/06/16 09:55 Pulse Ox 97 06/06/16 09:55 General: mild work of breathing at rest noted Eyes: nonicteric ENT: oropharynx moist Neck: supple, no lymphadenopathy Lungs: rhonchi bilaterally Cardiovascular: regular rate and rhythm Gastrointestinal: normoactive bowel sounds, soft, non-tender, non-distended Integumentary: Evidence of excisional biopsies noted, most notably of the nose Extremities: no cyanosis, no edema Musculoskeletal: no deformities Neuro: normal mental status, non-focal exam Psych: mood appropriate, affect normal Results - Laboratory Findings CBC and BMP: 06/06/16 08:54 06/06/16 08:54 PT/INR, D-dimer PT 12.2 Seconds (9.4-12.1) H 06/06/16 08:54 Abnormal lab findings: Abnormal lab results WBC 3.2 K/mcL (4.3-11.1) L D 06/06/16 08:54 Hgb 10.1 g/dL (11.5-15.4) L 06/06/16 08:54 Hct 31.9 % (35.3-44.9) L 06/06/16 08:54 MCV 79.6 fL (83.0-100.0) L 06/06/16 08:54 MCH 25.2 pg (28.0-33.3) L 06/06/16 08:54 RDW 17.7 % (11.5-14.5) H 06/06/16 08:54 MPV 8.7 fL (9.4-12.4) L 06/06/16 08:54 Nucleated RBCs/100 WBC 1.3 /100 WBC (0) H 06/06/16 08:54 PT 12.2 Seconds (9.4-12.1) H 06/06/16 08:54 POC Glucose 103 (58-89) H 06/06/16 05:57 Calcium 8.3 mg/dL (8.6-10.8) L 06/06/16 08:54 B-Natriuretic Peptide 138 pg/mL (0-100) H 06/04/16 13:02 - Clinical Findings Intake & Output: Intake & Output 06/05/16 06/06/16 06/06/16 23:59 07:59 15:59 Intake Total 340 / 340 100 / 100 Output Total 0 / 0 201 / 201 Balance 340 / 340 -101 / -101 Weight 71.668 kg - VTE Documentation of Mechanical Device: Graduated compression elastic hosiery Consult Discharge Plan - Plan Referrals: Kareem Corbin MD [Primary Care Provider] - 06/19/16 8:30 am
[2016-06-06] MEDS: Ipratropium/Albuterol Neb 3 ML IH SCH ×4 (11:58→23:05)
[2016-06-06] MEDS: Methylphenidate HCl 5 MG TABLET PO SCH (12:14)
[2016-06-06] MEDS: predniSONE 10 MG TABLET PO SCH (12:14)
--- NOTE | 2016-06-06 12:58 | IR Consult Note ---
Date of Encounter: 06/06/16 Time of Encounter: 12:00 Assessment and Plan (1) Hemoptysis Current Visit: Yes Status: Acute 75 yo woman with a large RML mass c/w metastatic melanoma. She is experiencing hemoptysis which appears to be submassive at this point. Benefits of bronchial artery embolization are unclear, given the necrotic nature of the mass, lack of hypertrophied bronchial arteries, and possible other contributing factors including pneumonia and radiation pneumonitis. Risks include contrast induced nephropathy, access site complications, pulmonary infarction, and spinal ischemia. After detailed discussion with the patient, it was decided that risks outweigh benefits at this point. This could be revisited if the patient' s clinical status worsens. Consult date: 06/06/16 Ordering Clinician: Ken Daniel Physicians: Kel Méndez History of present illness: Very pleasant 75 yo woman with a history of metastatic melanoma who was admitted with increasing shortness of breath and hemoptysis. She has an enlarging right middle lobe mass for which she is receiving chemotherapy and had two sessions of radiation. In the last several weeks she has had gradually increasing hemoptysis, now describing coughing up small amounts of blood mixed with sputum approximately every [address] from 06/04/2016 shows a large, necrotic RML mass. Adjacent groundglass opacities could represent radiation pneumonitis, infection, or hemorrhage. No hypertrophied bronchial arteries are identified. She underwent bronchoscopy today which showed bleeding from the RML. Consult Comment: Thank you for the consult. Call [facility] with questions or concerns. Past Med Surg Social Fam HX - Past Medical History Medical history: cancer, GERD Psychiatric history: anxiety - Past Surgical History Surgical History: appendectomy, cancer surgery, cholecystectomy, hysterectomy, other - Social History Smoking Status: Former smoker Smokeless Tobacco Status: No Alcohol use: none Drug use: none - Family History Mother Living Status: Hx Family Cardiac Disorders: No Hx Family Respiratory Disorders: No Hx Family Cancer: Yes (pancreatic) Hx Family GI Disorders: No Hx Family Endocrine Disorder: No Hx Family Neuromuscular Disorders: No Hx Family Neurologic Disorders: No Hx Family HEENT Disorders: No Hx Family Autoimmune Disorders: No Father Living Status: Hx Family Cardiac Disorders: No Hx Family Respiratory Disorders: No Hx Family Cancer: No Hx Family GI Disorders: No Hx Family Endocrine Disorder: No Hx Family Neuromuscular Disorders: No Hx Family Neurologic Disorders: No Hx Family HEENT Disorders: No Hx Family Autoimmune Disorders: No Medications and Allergies LORazepam [Ativan] 0.5 - 1 mg PO Q6HR PRN #90 tablet 06/23/15 [Rx] Ca/D3/Mag#11/Zinc/Certification Technician/Tucker/Bor [Caltrate 600+D Plus Tablet] 1 tab PO DAILY 08/15 [History] PredniSONE 10 mg PO DAILY 08/25/15 [History] Omeprazole [PriLOSEC] 20 mg PO DAILY #90 capsule. 04/12/16 [Rx] Magic Mouthwash 10 ml PO TID PRN #260 ml 05/22/16 [Rx] Ondansetron [Zofran] 8 mg PO Q8HR PRN #90 tablet 05/22/16 [Rx] Prochlorperazine Maleate [Compazine] 10 mg PO Q6HR PRN #60 tablet 05/22/16 [Rx] Methylphenidate HCl [Ritalin] 5 mg PO QAM #30 tablet 05/30/16 [Rx] Metoprolol [Lopressor] 12.5 mg PO BID #60 tablet 05/30/16 [Rx] Oxycodone HCl/Acetaminophen [Percocet 5-325 mg Tablet] 1 tab PO Q4H PRN [History] Potassium Chloride [K-Tab ER] 20 meq PO DAILY 06/04/16 [History] Sennosides/Docusate Sodium [Senna Plus] 2 tab PO DAILY PRN 06/04/16 [History] Allergies No Known Allergies Allergy (Verified 04/15/16 20:55) Exam Vital Signs, Last 4 Hours Pulse Resp BP Pulse Ox 06/06/16 09:55 110 16 140/68 97 06/06/16 09:25 111 16 122/54 94 L 06/06/16 09:20 112 16 128/60 96 Results Reviewed 06/06/16 08:54 06/06/16 08:54 Lab Results 06/06/16 06/06/16 06/06/16 08:54 08:54 08:54 WBC 3.2 L D RBC 4.01 Hgb 10.1 L Hct 31.9 L MCV 79.6 L MCH 25.2 L MCHC 31.7 RDW 17.7 H Plt Count 213 MPV 8.7 L Neutrophils # 1.6 Lymphocytes # 0.7 Monocytes # 0.7 Eosinophils # 0.1 Basophils # 0.0 PT 12.2 H INR 1.1 Sodium 138 Potassium 4.3 Chloride 107 Carbon Dioxide 21 BUN 16 Creatinine 0.86 Est GFR ( Amer) > 60 Est GFR (Non-Af Amer) > 60 BUN/Creatinine Ratio 19 Glucose 99 Calcium 8.3 L 06/05/16 06/04/16 04:29 18:51 WBC RBC Hgb 9.4 L Hct 30.8 L MCV MCH MCHC RDW Plt Count MPV Neutrophils # Lymphocytes # Monocytes # Eosinophils # Basophils # PT INR Sodium 139 Potassium 4.3 Chloride 109 Carbon Dioxide 24 BUN 19 Creatinine 0.88 Est GFR ( Amer) > 60 Est GFR (Non-Af Amer) > 60 BUN/Creatinine Ratio 22 Glucose 83 Calcium 8.7 Consult Discharge Plan - Plan Referrals: Kareem Corbin MD [Primary Care Provider] - 06/19/16 8:30 am
[2016-06-06 14:36] LABS: Appearance of Body Fluid Cloudy (Clear); Volume of Body Fluid 28 mL
--- NOTE | 2016-06-06 15:56 | Internal Med Progress Note ---
Date of Encounter: 06/06/16 Time of Encounter: 15:54 - Assessment and plan (1) Anemia Current Visit: Yes Status: Acute Assessment and plan: 2/2 hemoptysis, hb 10.1 today consulted pulmonary, s/p bronchoscopy today which revealed active bleeding from the right middle lobe. no need for transfusion today will continue to monitor Qualifiers: Qualified Code(s): D64.9 - Anemia, unspecified (2) Hemoptysis Current Visit: Yes Status: Acute Assessment and plan: reports that she was still coughing out some blood before the procedure. s/p bronch today which revealed active bleeding from the right middle lobe no endoscopic therapeutic options as there are no endobronchial lesions noted as per pulmonary. will closely watch for active bleeding, IR was consulted for possible IR guided embolization , however after discussion with the patinet this was deferred as the risks outweigh the benefits at this time. if stable, will possible dc tomm (3) Lung mass Current Visit: Yes Status: Acute Assessment and plan: Has history of metastatic melanoma, with lung metastases. Recent CT showed right upper lobe necrotic lung mass. Has been started on IV Zosyn by pulmonary. We will continue to monitor. Oncology has also been consulted, Her last visit chemotherapy was 05/22/16. Next is schedule 06/13/16. chemotherapy would be on hold until her overall clinical condition improves and she is medically optimal otherwise. (4) Melanoma Current Visit: No Status: Inactive Assessment and plan: she is being followed by oncology she is receiving chemotherapy or loss treatment was in May 22. We will continue with oncology consult recommendations Qualifiers: Qualified Code(s): C43.9 - Malignant melanoma of skin, unspecified - Time Spent With Patient 25 - 35 minutes - Subjective Interval history: seen at the bedside, admitted for hemoptysis, h/o metastatic melanoma with lung mets CT chest showed rt. upper lobe necrotic mass, currnetly ongoing chemotherapy. seen by pulmonary , s.p bornchoscopy today - Constitutional Vitals: Temp Pulse Resp BP Pulse Ox 97.8 F 110 18 140/68 94 L 06/06/16 07:00 06/06/16 09:55 06/06/16 11:58 06/06/16 09:55 06/06/16 11:58 General appearance: Present: A&O X 3 Exam: - Head Head exam: Present: atraumatic, normocephalic - Respiratory Respiratory exam: Present: wheezing b/l Absent: accessory muscle use, - Cardiovascular Cardiovascular exam: Present: RRR, +S1, +S2. Absent: diastolic murmur, gallop, rubs, systolic murmur - GI/Abdominal GI/Abdominal exam: Present: normal bowel sounds, soft, no peritoneal signs. Absent: distended, tenderness - Extremities Exam Extremities exam: Present: warm, radial pulses palpable and symetrical. Absent : calf tenderness, cyanotic, pedal edema - Neurological Exam Neurological exam: Present: CN II-XII intact, oriented X3, no focal deficits. Absent: pronater drift, facial droop, speech deficit - Skin Skin exam: Present: dry, intact Internal Medicine: Result - Labs CBC & Chem 7: 06/06/16 08:54 06/06/16 08:54 Labs: Short CBC 06/06/16 Range/Units 08:54 WBC 3.2 L D (4.3-11.1) K/mcL Hgb 10.1 L (11.5-15.4) g/dL Hct 31.9 L (35.3-44.9) % Plt Count 213 (140-400) K/mcL Neutrophils # 1.6 (1.6-8.9) K/mcL BMP 06/06/16 08:54 Sodium 138 Potassium 4.3 Chloride 107 Carbon Dioxide 21 BUN 16 Creatinine 0.86 Glucose 99 Calcium 8.3 L - ABG Interpretation ABG results: PT/INR, D-dimer PT 12.2 Seconds (9.4-12.1) H 06/06/16 08:54 - VTE Documentation of Mechanical Device: Graduated compression elastic hosiery Consult Discharge Plan - Plan Referrals: Kareem Corbin MD [Primary Care Provider] - 06/19/16 8:30 am
[2016-06-06] MEDS ORDERED: GuaiFENesin/Codeine Oral Soln 5 ML UDC PO PRN (16:17)
[2016-06-06] MEDS ORDERED: GuaiFENesin/Codeine Oral Soln 5 ML UDC PO SCH (21:00)
[2016-06-07] MEDS: Piperacillin/Tazobactam 3.375 GM in D5% in Water (Mini-Bag+) 100 ML IVPB SCH ×3 (00:24→16:43)
[2016-06-07] MEDS: Acetaminophen 325 MG TABLET PO PRN (03:54)
[2016-06-07] MEDS: Ipratropium/Albuterol Neb 3 ML IH SCH ×3 (04:06→11:39)
--- NOTE | 2016-06-07 07:31 | RAD Oncology Progress Note ---
Radiation Oncology Dictation Date of Service: 06/07/16 - Progress Note Comments: With ongoing steadily worsening hemoptysis and lack of other viable interventions at present, I recommend resuming palliative radiotherapy and holding on systemic therapy if patient wishes to continue to be aggressive with treatment. Also discussed goals of care today. Patient continues to want to proceed with aggressive oncologic treatment. Wishes to remain a full code. Daughter is POA. Will arrange for patient to resume palliative radiotherapy this week, tentative 06/08/2016 Vikas [facility] [phone] (cell)
--- NOTE | 2016-06-07 09:13 | Pulmonology Progress Note ---
Date of Encounter: 06/07/16 Time of Encounter: 09:09 Assessment and Plan (1) Hemoptysis Current Visit: Yes Status: Acute Hemoptysis is presumably due to metastatic melanoma to the lung. I performed bronchoscopy 06/06/2016 which revealed active bleeding from the right middle lobe. This corresponds with the site of her tumor noted on chest imaging. I did obtain a bronchoalveolar lavage and sent for culture. Overall from results are unimpressive for infection, but there is little downside to treating with a course of antibiotics. Recommend transitioning to Augmentin to finish a 10 day course of antibiotics. No endoscopic therapeutic options as there are no endobronchial lesions noted. I discussed with interventional radiology and asked them to offer an opinion regarding bronchial artery embolization, I appreciate their input. Overall the patient has limited treatment options. Hopefully, the tumor will be responsive to chemotherapy and radiation. I did discuss goals of care and recommended at the very least changing her CODE STATUS to DNR CCA DNI. She will continue to discuss goals of care with her providers and family. (2) Abnormal CT scan, chest Current Visit: Yes Status: Acute I reviewed the CT scan of the chest, which revealed the previously noted right middle lobe lung mass and some associated infiltrates. There is some air in the mass which could represent necrosis versus bacterial superinfection ( possibly anaerobic). The infiltrates noted could represent blood or pneumonia. I have placed her on antibiotics for empiric treatment (as above). Bronch cultures (aerobic, fungal, AFB, and viral) no growth to date. Remote history of TB, but this seems unlikely clinically. (3) Anemia Current Visit: Yes Status: Acute Multifactorial in etiology and due to acute blood loss and chemotherapy. Recommend transfusion for hemoglobin less than 7. Qualifiers: Anemia type: unspecified type Qualified Code(s): D64.9 - Anemia, unspecified (4) Lung mass Current Visit: Yes Status: Acute Status post previous biopsy which revealed likely malignant melanoma. No further indication for repeat biopsy at this time. Appreciate oncology and radiation oncology evaluation. No further recommendations from pulmonary standpoint and will sign off. Please call with questions. Subjective Principal diagnosis: hemoptysis Interval history: Hemoptosis persists without much change in volume or frequency. No sputum purulence noted No fevers/chills. All other systems reviewed and otherwise negative. Objective PUL Vital signs: Last Vital Signs Temp 98.2 F 06/07/16 07:49 Pulse 91 03/15/17 07:49 Resp 18 06/07/16 08:19 BP 119/76 06/07/16 07:49 Pulse Ox 95 06/07/16 08:19 General: mild work of breathing at rest noted Eyes: nonicteric ENT: oropharynx moist Neck: supple, no lymphadenopathy Lungs: rhonchi bilaterally Cardiovascular: regular rate and rhythm Gastrointestinal: normoactive bowel sounds, soft, non-tender, non-distended Integumentary: Evidence of excisional biopsies noted, most notably of the nose Extremities: no cyanosis, no edema Musculoskeletal: no deformities Neuro: normal mental status, non-focal exam Psych: mood appropriate, affect normal Results - Laboratory Findings CBC and BMP: 06/06/16 08:54 06/06/16 08:54 PT/INR, D-dimer PT 12.2 Seconds (9.4-12.1) H 06/06/16 08:54 Abnormal lab findings: Abnormal lab results WBC 3.2 K/mcL (4.3-11.1) L D 06/06/16 08:54 Hgb 10.1 g/dL (11.5-15.4) L 06/06/16 08:54 Hct 31.9 % (35.3-44.9) L 06/06/16 08:54 MCV 79.6 fL (83.0-100.0) L 06/06/16 08:54 MCH 25.2 pg (28.0-33.3) L 06/06/16 08:54 RDW 17.7 % (11.5-14.5) H 06/06/16 08:54 MPV 8.7 fL (9.4-12.4) L 06/06/16 08:54 Nucleated RBCs/100 WBC 1.3 /100 WBC (0) H 06/06/16 08:54 PT 12.2 Seconds (9.4-12.1) H 06/06/16 08:54 POC Glucose 103 (58-89) H 06/06/16 05:57 Calcium 8.3 mg/dL (8.6-10.8) L 06/06/16 08:54 B-Natriuretic Peptide 138 pg/mL (0-100) H 06/04/16 13:02 Fluid Appearance Cloudy (Clear) A 06/06/16 11:05 - Microbiology Findings Microbiology Findings: Microbiology, Last 48 Hours 06/06/16 11:05 Respiratory Culture - Preliminary Right Middle Lobe Lung No growth. 06/06/16 11:05 Gram Stain - Final Right Middle Lobe Lung - Clinical Findings Intake & Output: Intake & Output 06/06/16 06/07/16 06/07/16 23:59 07:59 15:59 Intake Total 220 / 220 340 / 340 Output Total 0 / 0 200 / 200 Balance 220 / 220 140 / 140 Weight 71.327 kg - VTE Documentation of Mechanical Device: Graduated compression elastic hosiery Consult Discharge Plan - Plan Referrals: Shaquille,Kareem Pitt MD [Primary Care Provider] - 06/19/16 8:30 am
[2016-06-07 09:18] LABS: Basophils % 0.7 %; Eosinophils % 0.7 %; Hematocrit 31.5 % (35.3-44.9); Hemoglobin 9.8 g/dL (11.5-15.4); Lymphocytes # 0.9 K/mcL (0.6-4.6); Lymphocytes % 29.5 %; Mean Corpuscular HGB Conc 31.1 g/dL (31.6-35.5); Mean Corpuscular Hemoglobin 25.2 pg (28.0-33.3); Mean Platelet Volume 8.3 fL (9.4-12.4); Monocytes # 0.4 K/mcL (0.0-1.3); Monocytes % 13.4 %; Neutrophils # 1.7 K/mcL (1.6-8.9); Platelet Count 184 K/mcL (140-400); Red Blood Count 3.89 M/mcL (3.82-4.97); Red Cell Distribution Width 18.3 % (11.5-14.5); Segmented Neutrophils % 54.7 %
[2016-06-07] MEDS: predniSONE 10 MG TABLET PO SCH (09:24)
[2016-06-07] MEDS: (Ca/D3/Mag#11/Zinc/Cop/Mang/Bor [Caltrate 600+D Plus PO SCH (09:25)
[2016-06-07] MEDS: Methylphenidate HCl 5 MG TABLET PO SCH (09:26)
--- NOTE | 2016-06-07 12:42 | Discharge Summary ---
Date of Encounter: 06/07/16 Time of Encounter: 12:38 - Discharge Diagnosis (1) Anemia Priority: Primary Status: Acute Qualifiers: Anemia type: unspecified type Qualified Code(s): D64.9 - Anemia, unspecified (2) Hemoptysis Priority: Primary Status: Acute (3) Lung mass Priority: Primary Status: Acute (4) Melanoma Priority: Secondary Status: Inactive Qualifiers: Melanoma location: unspecified site Qualified Code(s): C43.9 - Malignant melanoma of skin, unspecified - Discharge Medications Prescriptions: Chloraseptic Caruthers [Chloraseptic] 2 spray MM QID PRN #1 bottle PRN Reason: Sore Throat Levofloxacin 750 mg PO DAILY #7 tablet Oxycodone HCl/Acetaminophen [Percocet 5-325 mg Tablet] 1 tab PO Q4H PRN #30 tablet PRN Reason: Pain Home Medications: LORazepam [Ativan] 0.5 - 1 mg PO Q6HR PRN #90 tablet 06/23/15 [Rx] Ca/D3/Mag#11/Zinc/Mannequin Mounter/Tucker/Bor [Caltrate 600+D Plus Tablet] 1 tab PO DAILY 08/15 [History] PredniSONE 10 mg PO DAILY 08/25/15 [History] Omeprazole [PriLOSEC] 20 mg PO DAILY #90 capsule. 04/12/16 [Rx] Magic Mouthwash 10 ml PO TID PRN #260 ml 05/22/16 [Rx] Ondansetron [Zofran] 8 mg PO Q8HR PRN #90 tablet 05/22/16 [Rx] Prochlorperazine Maleate [Compazine] 10 mg PO Q6HR PRN #60 tablet 05/22/16 [Rx] Methylphenidate HCl [Ritalin] 5 mg PO QAM #30 tablet 05/30/16 [Rx] Metoprolol [Lopressor] 12.5 mg PO BID #60 tablet 05/30/16 [Rx] Potassium Chloride [K-Tab ER] 20 meq PO DAILY 06/04/16 [History] Sennosides/Docusate Sodium [Senna Plus] 2 tab PO DAILY PRN 06/04/16 [History] Chloraseptic Caruthers [Chloraseptic] 2 spray MM QID PRN #1 bottle 06/07/16 [Rx] Levofloxacin 750 mg PO DAILY #7 tablet 06/07/16 [Rx] Oxycodone HCl/Acetaminophen [Percocet 5-325 mg Tablet] 1 tab PO Q4H PRN #30 tablet 06/07/16 [Rx] Allergies/Adverse Reactions: Allergies No Known Allergies Allergy (Verified 04/15/16 20:55) Date of admission: 06/04/16 14:19 Primary care physician: Kareem Corbin MD Consults: 06/04/16 15:14 Consult to Oncology Hematology [CONS] Routine Consulting Provider: Nilsa Parker Reason for Consult: spoke with dr Parker in ED Call Completed: Yes 06/04/16 18:48 Consult to Pulmonary Rehab [CONS] Routine Reason for Consult: hemoptysis Time Notified: 18:49 Call Completed: No 06/05/16 12:01 Consult to Pulmonology [CONS] Routine Consulting Provider: [facility] Reason for Consult: please evaluate for hemoptysis with h/o metastatic melanoma and rt. upper lobe necrotic lung mass. thank you Call Completed: Yes 06/05/16 13:48 Consult to Oncology [CONS] Routine Consulting Provider: [facility] Reason for Consult: known melenoma, patient of Dr. Londono, presents with hemoptysis & anemia Call Completed: No 06/06/16 11:30 Consult to Interventional Radiology [CONS] Routine Consulting Provider: Radiology [facility] Reason for Consult: hemoptysis due to malignant melanoma with tumor in RML, please evaluate for brochial artery embolization Call Completed: No Discharging clinician: Kel Méndez Anticipated date of discharge: 06/07/16 - Patient Status Disposition: Home, Self-Care Condition: Fair Functional capacity at discharge: independent ambulation Overall status at discharge: patient is progressing back to baseline - Discharge Instructions Follow Up With: Kareem Corbin MD [Primary Care Provider] - 06/19/16 8:30 am - Diet and Activity Activity: resume usual activities as tolerated Diet: advance to your usual diet Interval History: 75-year-old white female with a medical history significant for metastatic melanoma who presented to the hospital on 06/04/2016 for evaluation of hemoptysis. The patient reports a long-standing history of intermittent hemoptysis. This is thought to be secondary to metastatic melanoma to the lung. Over the past 2 weeks her hemoptysis has worsened. She reports a teaspoon to tablespoon of bright or dark red blood being coughed up at least 10 times per day. She denies any purulent sputum. No fever/chills. No night sweats. No chest pain. CT scan of the chest revealed the previously noted right middle lobe lung mass and some associated infiltrates. There is some air in the mass which could represent necrosis versus bacterial superinfection (possibly anaerobic). The infiltrates noted could represent blood or pneumonia. pulmonary was consulted, performed bronchoscopy 06/06/2016 which revealed active bleeding from the right middle lobe. This corresponds with the site of her tumor noted on chest imaging. we got bronchoalveolar lavage and sent for culture. However , did not see any purulent secretions on the bronchoscopy. No endoscopic therapeutic options as there are no endobronchial lesions noted. interventional radiology was consulted further regarding bronchial artery embolization. As per IR, Benefits of bronchial artery embolization are unclear, given the necrotic nature of the mass, lack of hypertrophied bronchial arteries , and possible other contributing factors including pneumonia and radiation pneumonitis. Risks include contrast induced nephropathy, access site complications, pulmonary infarction, and spinal ischemia. After detailed discussion with the patient, it was decided that risks outweigh benefits at this point. With ongoing steadily worsening hemoptysis and lack of other viable interventions at present, palliative radiation oncology recommend resuming palliative radiotherapy and holding on systemic therapy if patient wishes to continue to be aggressive with treatment. Also discussed goals of care . Patient continues to want to proceed with aggressive oncologic treatment. Wishes to remain a full code. Daughter is POA. patient to resume palliative radiotherapy this week, tentative 2016. she is being dc in stable condition today, hb is stable and did not require transfusion at [facility] will dc with oral levoflox for 7 more days. Hospital course: Ms. Severino is a 75 year old female Time spent discussing smoking cessation with patient: more than 10 minutes - Time Spent with Patient Total time spent providing and/or coordinating discharge services: Greater than 30 minutes - Constitutional Vitals: Temp Pulse Resp BP Pulse Ox 97.1 F L 91 16 116/67 100 06/07/16 11:02 06/07/16 11:02 06/07/16 11:40 06/07/16 11:02 06/07/16 11:40 General appearance: Present: A&O X 3 Exam: - Head Head exam: Present: atraumatic, normocephalic - Respiratory Respiratory exam: Present: wheezing b/l Absent: accessory muscle use, - Cardiovascular Cardiovascular exam: Present: RRR, +S1, +S2. Absent: diastolic murmur, gallop, rubs, systolic murmur - GI/Abdominal GI/Abdominal exam: Present: normal bowel sounds, soft, no peritoneal signs. Absent: distended, tenderness - Extremities Exam Extremities exam: Present: warm, radial pulses palpable and symetrical. Absent : calf tenderness, cyanotic, pedal edema - Neurological Exam Neurological exam: Present: CN II-XII intact, oriented X3, no focal deficits. Absent: pronater drift, facial droop, speech deficit - Skin Skin exam: Present: dry, intact - VTE Documentation of Mechanical Device: Graduated compression elastic hosiery
[2016-06-07 15:30] VITALS: BP 149/96
[2016-06-09 08:10] LABS: Influenza A PCR Body Fluid NOT DETECTED; Influenza B PCR Body Fluid NOT DETECTED; RSV PCR Body Fluid DETECTED
== END 2016-06-07 16:47 | disposition home or self-care (01) ==
LOC: 3ANU 11:58 → EMEROO 11:58 → SUATTDRO 14:19 → 3ANU 15:19
PROVIDERS: ADMIT Internal Medicine; ATTEND Internal Medicine Endocrinology, Diabetes & Metabolism
PROC: ENDOBRF (2016-06-06 09:00)